=== PATIENT | male | born 1940 | race Caucasian/White ===

== ENCOUNTER 2016-07-11 07:37 | Day surgery (SDC) | payer MEDICARE ==
[~2016-07-11] VITALS: Ht 182.9 cm; Wt 89.5 kg
[~2016-07-11 07:37] MED LIST: ASCORBIC ACID500 MG PO; ASPIRIN81 MG PO; IVIG; JANUMET XR 50-1 EACH PO; METAMUCIL PACKE1 PKT PO; MULTIPLE VITAMI1 TA1 PO; OMEGA-3100 MG PO; PROBIOTIC1 EAC1 PO; PROTONIX40 MG PO; SYNTHROID100 MCG PO; TESTOSTERON200 MG/ML IM; TOPROL XL25 MG PO; VITAMIN C500 MG; VITAMIN D31000 UNIT PO
[2016-07-11] MEDS ORDERED: METAMUCIL PO (08:53)
[2016-07-11] MEDS ORDERED: OMEGA Q PLUS (09:01)
[2016-07-11] MEDS ORDERED: BIOTIN PO (09:02)
[2016-07-11] MEDS ORDERED: [UNRECOGNIZED DRUG - OTHER] PO (09:04)
[2016-07-11] MEDS ORDERED: [UNRECOGNIZED DRUG - OTHER] (09:05)
[2016-07-11] MEDS ORDERED: [UNRECOGNIZED DRUG - OTHER] PO (09:06)
[2016-07-11] MEDS ORDERED: IMMUNE GLOBULIN IV (09:09)
[2016-07-11 09:44] VITALS: BP 165/90; Ht 182.9 cm; Wt 89.5 kg
[2016-07-11 10:06] LABS: BASOPHILS 0.8 % (0.0-2.0); EOSINOPHILS 2.1 % (0-7); HEMATOCRIT 38.7 % (42.0-54.0); HEMOGLOBIN 13.4 g/dL (13.5-17.5); IMMATURE GRANULOCYTES 0.2 % (0-5); LYMPHOCYTES 15.8 % (15-50); MCH 34.8 pg (26.0-34.0); MCHC 34.6 g/dL (31.0-37.0); MCV 100.5 fL (80.0-100.0); MEAN PLATELET VOLUME 10.3 fL (7.4-10.4); MONOCYTES 11.3 % (2-11); NEUTROPHILS 69.8 % (40-80); PLATELET COUNT 187 10x3/uL (130-400); RBC 3.85 10x6/uL (4.20-6.10); RDW 13.3 % (11.5-14.5); WBC 5.1 10x3/uL (4.8-10.8)
[2016-07-11 10:15] LABS: CALC OSMOLALITY 280 mosm/kg (275-300); CALCIUM 10.1 mg/dL (8.5-10.1); CARBON DIOXIDE 22.9 mmol/L (21.0-32.0); CHLORIDE - SERUM 103 mmol/L (98-107); POTASSIUM - SERUM 4.4 mmol/L (3.5-5.1); SODIUM 138 mmol/L (136-145); UREA NITROGEN 13 mg/dL (7-18); eGFR NON AFRICAN AMERICAN 78 mL/min (90-120)
[2016-07-11 10:19] LABS: GLUCOSE 181 mg/dL (74-106)
--- NOTE | 2016-07-11 13:55 | NUR ---
1345--PORT FLUSHED WITH 10CC NORMAL SALINE AND 5CC HEPARIN. PORT DC'D. PT UP TO DRESS AT THIS TIME. MALENA RN
--- NOTE | 2016-07-11 14:11 | NUR ---
1410--DISCHARGE INSTRUCTIONS GIVEN, PT VERBALIZES UNDERSTANDING. PT OFF UNIT VIA ALF. MALENA LAI
--- NOTE | 2016-07-22 10:18 | OP ---
PATIENT NAME: CARLENE RUIZ III MEDICAL RECORD: [id number] :42 LOCATION:D.OPS ADMISSION DATE: SURGEON: JEN PERALES MD DATE OF OPERATION: 07/11/2016 REFERRING PHYSICIAN: Chuy Jones MD. PREOPERATIVE DIAGNOSIS: Screening. OPERATION PERFORMED: Screening colonoscopy. SURGEON: Jen Perales MD. ANESTHESIA: TIVA per TRAY DELIVERY AIDE. PREOPERATIVE NOTE: Mr. Ruiz is a very nice gentleman who has not had colonoscopy now for a number of years, over 10, that is brought to the hospital at this time for a screening colonoscopy. He had had a standard MiraLax bowel prep. DESCRIPTION OF PROCEDURE: Under TIVA, with the patient in the lateral decubitus position, a digital rectal exam was done and this was normal. There was no sign of perianal inflammation or sepsis. No hemorrhoidal thrombosis, no blood. The prostate was mildly enlarged. The Olympus colonoscope was then inserted and advanced to the cecum. It proved difficult to reach the cecum due to a long and tortuous colon and looping of the scope and also the patient's prep was just barely acceptable and required fair amount of irrigation and suction. A thorough examination though was obtained and today I found no polyps or other mucosal lesions or any significant diverticulosis. No sign of bleeding, etc. The scope was retroflexed in the rectum and the upper anal canal examined from above and it also was normal. The scope was withdrawn and the patient awakened and in stable condition returned to the outpatient department. He will be allowed to resume his usual diet and activities and home medications and I have recommended that he have a repeat surveillance colonoscopy in between 5 and 10 years. Note that there is a past prior personal history of colon polyps many years ago, removed with colonoscopy. Also, there is a family history of some type of colon malignancy, though it may have been a metastatic melanoma according to the patient. TRANSINT:[id number] Voice Confirmation ID: [id number] DOCUMENT ID: [id number] JEN PERALES MD at 1018 CC: CHUY JONES MD [id number] DICTATION DATE: 07/19/16 1601 SURGICAL DENTAL ASSISTANT: 07/19/16 2353 [facility] 07/11/16 [place] [address]
== END 2016-07-11 14:10 | disposition home or self-care (01) ==
LOC: D.OPS 07:37
PROVIDERS: Surgery
DX: Z12.11 Encounter for screening for malignant neoplasm of colon (principal); Z86.010 Personal history of colon polyps; Z80.0 Family history of malignant neoplasm of digestive organs

== ENCOUNTER → 2016-11-28 09:54 | Outpatient (CLI) | payer MEDICARE ==
[2016-07-11 09:44] VITALS: BMI 26.7
[~2016-11-28 09:54] MED LIST changes: +BIOTIN PO; +IMMUNE GLOBULIN IV; +METAMUCIL PO; +OMEGA Q PLUS; +[UNRECOGNIZED DRUG - OTHER]; +[UNRECOGNIZED DRUG - OTHER] PO; +[UNRECOGNIZED DRUG - OTHER] PO
== END | disposition home or self-care (01) ==
LOC: D.CT 09:54
DX: M54.16 Radiculopathy, lumbar region (principal)

== ENCOUNTER → 2017-08-01 12:03 | Outpatient (CLI) | payer MEDICARE ==
[2017-08-01 13:40] VITALS: BMI 24.8
== END | disposition home or self-care (01) ==
LOC: D.FANS 07-05 09:00
DX: E11.9 Type 2 diabetes mellitus without complications (principal)

== ENCOUNTER → 2018-12-07 09:34 | Outpatient (CLI) | payer MEDICARE ==
[2017-08-01 13:40] VITALS: BMI 24.8
== END | disposition home or self-care (01) ==
LOC: D.US 09:34
PROVIDERS: ATTEND Family Medicine
DX: R10.9 Unspecified abdominal pain (principal)

== ENCOUNTER 2019-02-13 13:30 | Inpatient (IN) | payer MEDICARE ==
[~2019-02-13] VITALS: Ht 182.9 cm; Wt 85.1 kg
--- NOTE | ~2019-02-13 | HEMODYNAMI ---
PATIENT:CARLENE ALLEN III MEDICAL RECORD: [id number] : 44 LOCATION:[facility] D.2122 ADMISSION DATE: 02/13/19 Generatedon:02/18/201910:15 Patient name: CARLENE ALLEN Patient #: [id number] : 1940 Date of study: 02/18/2019 Page: Of Hemodynamic Procedure Report Patient Data Patient Demographics Procedure consent was obtained First Name: CARLENE Gender: Male Last Name: TIFFANY Suffix: JEFFREY Middle Initial: GREGORY : 1940 Patient #: [id number] Age: 78 year(s) Race: SSN: [id number] Additional ID: [id number] Contact details [address]: [address] [place] [address] State: [place] City: [place] Zip code: [address] Past Medical History Allergies Allergen Reaction Date Comments Reported Other allergy 02/18/2019 Statins Admission Admission Data Admission Date: 02/13/2019 Admission Time: 17:37 Arrival Date: 02/13/2019 Arrival Time: 7:37 Admit Source: Emergency Insurance Payor: Medicare department Room #: D.2122 Height (in.): 72.05 BSA: 2.07 (m2) Height (cm.): 183 BMI: 25.38 (kg/m2) Weight (lbs.): 187.39 Weight (kg.): 85 Lab Results Lab Result Date: 02/18/2019 Lab Result Time: 0:00 Biochemistry Name Units Result Min Max BUN mg/dl 30 --(----)-* 7 18 Creatinine mg/dl 1.2 --(---*)-- 0.6 1.3 Troponin l ng/ml 3.532 --(----)-* 0 0.06 CBC Name Units Result Min Max Hemoglobin g/dl 9.3 *-(----)-- 13.5 17.5 Procedure Procedure Types Cath Procedure Diagnostic Procedure [facility] w/Coronaries w/Grafts Sedation Charges Moderate Sedation up to 45 minutes PCI Procedure Coronary Atherectomy Atherectomy w/Stent Coronary Initial Procedure Description Procedure Date Procedure Date: 02/18/2019 Procedure Start Time: 8:33 Procedure End Time: 10:06 Procedure Staff Name Function Darrin Avina MD Performing Physician Ravinder Luther RT Monitor Lauren Avila RT Scrub Seth Calzada RN Nurse Jules De Leon MD Assisting physician Procedure Data Cath Procedure Fluoroscopy Diagnostic fluoroscopy Total fluoroscopy Time: time: 27.8 min 27.8 min Diagnostic fluoroscopy Total fluoroscopy dose: dose: 4436 mGy 4436 mGy Contrast Material Contrast Material Type Amount (ml) Isovue 300 320 Entry Location Entry Primary Successful Side Size Upsize Upsize Entry Closure Succes sful Closure Location (Fr) 1 (Fr) 2 (Fr) Remarks Device Remarks Femoral Left 5 Fr 6 Fr 7 Fr Exoseal artery Short Short Estimated blood loss: 10 ml Diagnostic catheters Device Type Used For End Catheter Placement MULTIPACK JL 4.0 5Fr Procedure catheter MULTIPACK 3DRC 5Fr Procedure catheter DIAGNOSTIC AR MOD 5Fr Procedure Catheter ([id number]) DIAGNOSTIC AR2 MOD 5 Fr Procedure catheter ([id number]) MULTIPACK Pigtail 5 Fr Procedure catheter Procedure Complications No complications Procedure Medications Medication Administration Route Dosage Oxygen etCO2 Nasal cannula 2 l/min Heparin Flush Bag added to field 2 bags (1000units/500ml NS) 0.9% NaCl I.V. 100 ml/hr Lidocaine 2% added to field 20 Fentanyl I.V. 25 mcg Versed I.V. 0.5 mg Fentanyl I.V. 25 mcg Versed I.V. 0.5 mg Fentanyl I.V. 25 mcg Heparin Bolus I.V. 8500 units Nitroglycerin IC/IA I.C. 100 mcg Integrilin (Bolus I.V. 7.3 ml 2mg/ml) Integrilin (Bolus wasted 2.7 ml 2mg/ml) Versed I.V. 0.5 mg Fentanyl I.V. 25 mcg Heparin Bolus I.V. 4000 units Versed I.V. 0.5 mg Plavix P.O. 600 mg Hemodynamics Rest BSA: 2.07 (m2) HGB: 9.3 (g/dl) O2 Consumption: Estimated: 259.63 (ml/min) O2 Con sumption indexed: Estimated:125.43 (ml/min/m) Heart Rate: 98 (bpm) Snapshots Pre Cath Intra NCS Post Cath Vital Signs Time Heart Resp SPO2 etCO2 NIBP (mmHg) Rhythm Pain Sedation Rate (ipm) (%) (mmHg) Status Level (bpm) 8:22:11 99 30 91 21.8 116/86(104) NSR 0 (11) 10(A) , No pain 8:26:10 98 28 96 21.8 123/86(99) NSR 0 (11) 10(A) , No pain 8:30:16 100 22 89 11.2 107/78(88) NSR 0 (11) 9(A) , No pain 8:34:14 98 25 95 24 113/82(95) NSR 0 (11) 9(A) , No pain 8:38:11 99 28 95 22.5 116/86(100) NSR 0 (11) 9(A) , No pain 8:42:13 97 27 93 23.3 109/83(96) NSR 0 (11) 9(A) , No pain 8:46:13 100 26 94 19.5 106/81(89) NSR 0 (11) 9(A) , No pain 8:50:08 105 29 95 19.5 119/88(100) NSR 0 (11) 9(A) , No pain 8:54:12 100 20 81 13.5 106/79(90) NSR 0 (11) 9(A) , No pain 8:58:14 102 20 88 17.2 101/71(87) NSR 0 (11) 9(A) , No pain 9:02:13 103 21 89 9 100/73(85) NSR 0 (11) 9(A) , No pain 9:06:15 91 21 87 15 96/66(79) NSR 0 (11) 9(A) , No pain 9:10:12 106 22 87 15 99/74(85) NSR 0 (11) 9(A) , No pain 9:14:10 102 23 87 20.3 99/76(84) NSR 0 (11) 9(A) , No pain 9:18:05 106 22 87 19.5 99/80(88) NSR 0 (11) 9(A) , No pain 9:22:01 97 22 90 20.3 106/83(94) NSR 0 (11) 9(A) , No pain 9:25:58 105 26 90 18.8 111/85(96) NSR 0 (11) 9(A) , No pain 9:29:58 107 26 90 19.5 110/82(94) NSR 0 (11) 9(A) , No pain 9:33:58 106 24 92 19.5 107/79(91) NSR 0 (11) 9(A) , No pain 9:37:55 95 25 93 19.5 105/85(95) NSR 0 (11) 9(A) , No pain 9:41:55 104 23 92 20.3 103/79(89) NSR 0 (11) 9(A) , No pain 9:45:53 99 25 95 18.8 101/77(84) NSR 0 (11) 9(A) , No pain 9:49:50 100 23 92 18 103/79(90) NSR 0 (11) 9(A) , No pain 9:53:54 103 23 90 0 95/65(85) NSR 0 (11) 9(A) , No pain 9:57:50 105 24 91 18 100/76(92) NSR 0 (11) 9(A) , No pain 10:01:49 106 25 85 21 99/74(86) NSR 0 (11) 10(A) , No pain 10:05:47 106 25 88 12 106/77(88) NSR 0 (11) 10(A) , No pain Medications Time Medication Route Dose Verified Delivered Reason Notes Effectiveness by by 8:25:02 Oxygen etCO2 2 Darrin Seth Per physician Nasal l/min Fabrice Calzada RN cannula 8:25:10 Heparin Flush added 2 Darrin Seth used for Bag to bags Fabrice Calzada RN procedure (1000units/500ml field NS) 8:25:17 0.9% NaCl I.V. 100 Darrin Seth Per physician ml/hr Fabrice Calzada RN 8:25:26 Lidocaine 2% added 20ml Darrin Seth for local to vial Fabrice Calzada RN anesthetic field 8:28:03 Fentanyl I.V. 25 Darrin Seth for sedation mcg Fabrice Calzada RN 8:28:09 Versed I.V. 0.5 Darrin Seth for sedation mg Fabrice Calzada RN 8:48:55 Fentanyl I.V. 25 Darrin Seth for sedation mcg Fabrice Calzada RN 8:48:59 Versed I.V. 0.5 Darrin Seth for sedation mg Fabrice Calzada RN 8:59:59 Fentanyl I.V. 25 Darrin Seth for sedation mcg Fabrice Calzada RN 9:00:11 Heparin Bolus I.V. 8500 Darrin Seth for units Fabrice Calzada RN anticoagulation 9:30:56 Nitroglycerin I.C. 100 Darrin Darrin for IC/IA mcg Fabrice santos 9:36:23 Integrilin I.V. 7.3 Darrin Seth for (Bolus 2mg/ml) ml Fabrice Calzada RN antiplatelet therapy 9:36:32 Integrilin wasted 2.7 Darrin Seth for (Bolus 2mg/ml) ml Fabrice Calzada RN antiplatelet therapy 9:46:00 Versed I.V. 0.5 Darrin Seth for sedation mg Fabrice Calzada RN 9:46:14 Fentanyl I.V. 25 Darrin Seth for sedation mcg Fabrice Calzada RN 9:47:22 Heparin Bolus I.V. 4000 Darrin Seth for units Fabrice Calzada RN anticoagulation 9:55:49 Versed I.V. 0.5 Darrin Seth for sedation mg Fabrice Calzada RN 10:01:22 Plavix P.O. 600 Darrin Seth for mg Fabrice Calzada RN antiplatelet therapy Procedure Log Time Note 7:22:45 Diagnostic Cath Status : Elective 7:23:18 ACC Patient presents with Unstable Angina CCS Anginal Class 3--Marked limitation of physical activity, angina occurs with ordinary activity.. 7:23:22 Procedure Status Urgent Heart Cath (IP). 7:23:25 Seth Calzada RN sent for patient. Start room use. 7:23:26 Time tracking: Regular hours (M-F 7:00 - 5:00) 7:23:30 Plan of Care:Hemodynamics will remain stable., Cardiac rhythm will remain stable., Comfort level will be maintained., Respiratory function will remain adequate., Patient/ family verbilizes understanding of procedure., Procedure tolerated without complication., Recovers from procedure without complications.. 7:27:13 Informed consent obtained and on chart 7:27:55 Lab Result : Troponin l 3.532 ng/ml 7::55 Lab Result : Hemoglobin 9.3 g/dl 7::55 Lab Result : BUN 30 mg/dl 7::55 Lab Result : Creatinine 1.2 mg/dl 7:28:35 Admit Source: Emergency department 7:29:08 Arrival Date: 02/13/2019 7:37:00 AM 7:29:19 Insurance Payor : Medicare 7:29: Patient Weight : 187.39 lbs 7:29:31 Patient Height : 72.05 inches 8:21:08 Patient received from Med II to CCL 2 Alert and oriented. Tansferred to table in Supine position. 8:21:09 Warm blankets applied, and kris hugger turned on for patient comfort. 8:21:10 Correct patient and procedure confirmed by team. 8:21:10 ECG and BP/O2 sat monitors applied to patient. 8:21:11 Vital chart was started 8:21:12 Baseline sample Acquired. 8:21:17 Rhythm: sinus rhythm , paced 8:21:18 Full Disclosure recording started 8:21:32 H&P Date Dictated: 02/13/2019 Within 30 days and on chart.. 8:21:33 Pre-procedure instructions explained to patient. 8:21:33 Pre-op teaching completed and patient verbalized understanding. 8:21:35 Family in patients room. 8:21:36 Patient NPO since Midnight. 8:21:45 Patient allergic to Other allergyStatins 8:21:46 Is the patient allergic to Iodine/contrast media? No. 8:21:47 Is patient on blood thinner?No 8:21:49 Patient diabetic? Yes. 8:21:49 If diabetic: On Metformin? No 8:21:52 Previous problem with sedation/anesthesia? No ? 8:21:52 Snore? Yes 8:21:53 Sleep apnea? No 8:21:54 Deviated septum? No 8:21:55 Opens mouth fully? Yes 8:21:55 Sticks out tongue? Yes 8:22:01 Airway obstruction? No pneumonia 8:22:03 Dentures? No ? 8:22:19 Pre procedure: left dorsailis pedis pulse 1+ Palpable, but thready & weak; easily obliterated 8:22:32 Patient pain scale 0/10 ?. 8:22:37 IV patent on arrival in port with 0.9% NaCl at [facility]. 8:22:39 Lab results completed and on chart. 8:23:32 Left groin area was prepped with chlora-prep and draped in sterile fashion 8:24:44 Alarms reviewed by R. N. 8:24:45 Sharps counted by scrub and verified by R.N. 8:25:02 Oxygen 2 l/min etCO2 Nasal cannula was administered by Seth Calzada RN; Per physician; 8:25:09 Use device set Femoral Dx 8:25:10 Heparin Flush Bag (1000units/500ml NS) 2 bags added to field was administered by Seth Calzada RN; used for procedure; 8:25:10 ACIST Syringe (53992) opened to sterile field. 8:25:11 Bag Decanter (2002S) opened to sterile field. 8:25:11 Medline Cath Pack ([id number]) opened to sterile field. 8:25:12 ACIST Hand Control (91986) opened to sterile field. 8:25:12 ACIST Manifold (53432) opened to sterile field. 8:25:13 Tegaderm 4 x 4 (1626W) opened to sterile field. 8:25:14 SHEATH 5FR Paw Paw (DKO107) opened to sterile field. 8:25:16 DIAGNOSTIC Multipack 5Fr catheter set (RV0249) opened to sterile field. 8:25:17 0.9% NaCl 100 ml/hr I.V. was administered by Seth Calzada RN; Per physician; 8:25:25 Physician arrived 8:25:26 Lidocaine 2% 20ml vial added to field was administered by Seth Calzada RN; for local anesthetic; 8:25:26 --------ALL STOP TIME OUT------ 8:25:26 Final Timeout: patient, procedure, and site verified with staff and physician. All members of the team are in agreement. 8:25:27 Left groin site verified by team. 8:25:30 Fire Safety Assessment: A--An alcohol-based skin anteseptic being used preoperatively., C--Open oxygen or nitrous oxide is being used., D--An ESU, laser, or fiber-optic light is being used. 8:25:34 Physical assessment completed. ASA score P 3 - A patient with severe systemic disease as per Darrin Avina MD. 8:25:42 2) 60-89 Mildly reduced kidney function, and other findings (as for stage 1) point to kidney disease. 8:25:57 Maximum allowable contrast dose (3.7 X eGFR X 0.75)175 ml. 8:25:59 Sedation plan: IV Moderate Sedation Medication:Versed, Fentanyl 8:28:03 Fentanyl 25 mcg I.V. was administered by Seth Calzada RN; for sedation; 8:28:09 Versed 0.5 mg I.V. was administered by Seth Calzada RN; for sedation; 8:33:37 Procedure started. 8:33:42 Local anesthetic to left femerol artery with Lidocaine 2% by Darrin Avina MD.INITIAL ACCESS ONLY 8:33:49 A 5 Fr sheath was inserted into the Left Femoral artery 8:34:20 Zero performed for pressure channel P1 8:38:14 A MULTIPACK JL 4.0 5Fr catheter was advanced over the wire and used for Procedure. 8:39:29 LCA angiography performed. 8:40:45 Catheter exchanged over wire. 8:42:38 A MULTIPACK 3DRC 5Fr catheter was advanced over the wire and used for Procedure. 8:45:12 RCA angiography performed. 8:45:15 Catheter exchanged over wire. 8:45:19 A DIAGNOSTIC AR MOD 5Fr Catheter ([id number]) was advanced over the wire and used for Procedure. 8:45:55 RCA angiography performed. 8:47:31 Catheter exchanged over wire. 8:48:55 Fentanyl 25 mcg I.V. was administered by Seth Calzada RN; for sedation; 8:48:59 Versed 0.5 mg I.V. was administered by Seth Calzada RN; for sedation; 8:49:31 A DIAGNOSTIC AR2 MOD 5 Fr catheter ([id number]) was advanced over the wire and used for Procedure. 8:49:51 SVG to OM/ Diag angiography performed. 8:50:15 Catheter exchanged over wire. 8:52:09 A MULTIPACK Pigtail 5 Fr catheter was advanced over the wire and used for Procedure. 8:52:28 Aortic Root visualized 8:52:56 BMW 300cm Applegate 2 J wire ([id number]) opened to sterile field. 8:52:56 TUBING High Pressure Extension Tubing (Avina) (WE8282N) opened to sterile field. 8:52:57 INFLATOR Merit BasixCompak (AG6447) opened to sterile field. 8:53:00 SHEATH 6FR Paw Paw (BHU724) opened to sterile field. 8:54:34 Catheter removed. 8:54:40 ACCDominant side:Co-Dominant 8:55:02 Sheath upsized to a 6 Fr Short. 8:55:08 GUIDE 6FR AR 1.0 catheter ([id number]) opened to sterile field. 8:55:12 EMERALD Guide Wire (502-455) opened to sterile field. 8:57:11 6 Fr AR 1 guide catheter was inserted over the wire 8:58:23 Guide Catheter removed. pressure damping. 8:59:28 GUIDE 6FR AR 1.0 SH catheter ([id number]) opened to sterile field. 8:59:37 6 Fr AR 1 SH guide catheter was inserted over the wire 8:59:40 BMW wire advanced. 8:59:59 Fentanyl 25 mcg I.V. was administered by Seth Calzada RN; for sedation; 9:00:11 Heparin Bolus 8500 units I.V. was administered by Seth Calzada RN; for anticoagulation; 9:01:13 Wire advanced across lesion. 9:02:48 ACC Pre-intervention KARLA Flow is 3. 9:02:59 Pre PCI Site: [place] dRCA has 90% stenosis. 9:04:14 WHISPER 300cm guide wire ([id number]) opened to sterile field. 9:04:22 WHISPER wire advanced. 9:09:20 The Mozec Rx 2.5 x 14 balloon was advanced and then removed because of failure to cross lesion 9:10:48 Inflate balloon Inflation number: 1 A EUPHORA 1.5 x 12 balloon ([id number]) was prepped and advanced across the Dist RCA , then inflated to 12 AVERY for 0:10 (min:sec) . 9:11:33 Inflation number: 2 The EUPHORA 1.5 x 12 balloon ([id number]) was reinflated across the Dist RCA , to 12 AVERY for 0:10 (min:sec) . 9:11:34 Balloon removed over the wire. 9:12:41 ACT drawn and resulted at 285 seconds. (normal therapeutic range 180-240 seconds). 9:14:15 Inflate balloon Inflation number: 3 A Mozec Rx 2.0 x 15 balloon was prepped and advanced across the Dist RCA , then inflated to 12 AVERY for 0:10 (min:sec) . 9:14:50 Inflation number: 4 The Mozec Rx 2.0 x 15 balloon was reinflated across the Dist RCA , to 13 AVERY for 0:10 (min:sec) . 9:17:38 Balloon removed over the wire. 9:20:00 The DELBERT OTW 2.5 x 18 stent ([id number]) was advanced then removed because of failure to cross lesion 9:22:28 Inflate balloon Inflation number: 5 A Mozec Rx 2.5 x 14 balloon was prepped and advanced across the Dist RCA , then inflated to 13 AVERY for 0:10 (min:sec) . 9:22:39 Inflation number: 6 The Mozec Rx 2.5 x 14 balloon was reinflated across the Dist RCA , to 13 AVERY for 0:10 (min:sec) . 9:23:23 Balloon removed over the wire. 9:25:51 Wire removed. 9:27:32 The DELBERT OTW 2.5 x 18 stent ([id number]) was advanced then removed because of failure to cross lesion 9:30:56 Nitroglycerin IC/IA 100 mcg I.C. was administered by Darrin Avina MD; for vasodilation; 9:33:30 GUIDE 7FR AR 2.0 SH catheter ([id number]) opened to sterile field. 9:33:35 SHEATH 7FR Paw Paw (JBE666) opened to sterile field. 9:34:00 CHOICE PT Extra Support 182cm wire ([id number]) opened to sterile field. 9:36:23 Integrilin (Bolus 2mg/ml) 7.3 ml I.V. was administered by Seth Calzada RN; for antiplatelet therapy; 9:36:32 Integrilin (Bolus 2mg/ml) 2.7 ml wasted was administered by Seth Calzada RN; for antiplatelet therapy; 9:38:25 Wire removed. 9:38:26 Guide catheter removed. 9:38:39 Sheath upsized to a 7 Fr Short. 9:38:56 7 Fr AR 2 SH guide catheter was inserted over the wire 9:39:00 CHOICE PT ES wire advanced. 9:39:35 Wire advanced across lesion. 9:40:16 Inflate balloon Inflation number: 7 A EUPHORA 3.5 x 15 Balloon ([id number]) was prepped and advanced across the Dist RCA , then inflated to 15 AVERY for 0:10 (min:sec) . 9:40:43 Inflation number: 8 The EUPHORA 3.5 x 15 Balloon ([id number]) was reinflated across the Dist RCA , to 19 AVERY for 0:10 (min:sec) . 9:41:52 Balloon removed over the wire. 9:42:24 Place stent Inflation Number: 9 A DELBERT RX 3.5 x 22 stent ([id number]) was prepped and advanced across the Dist RCA . The stent was deployed at 23 AVERY for 0:10 (min:sec) . 9:43:01 Inflation number: 10 The stent balloon was then re-inflated across the Dist RCA to 23 AVERY for 0:10 (min:sec) . 9:43:19 Stent catheter was removed intact over wire. 9:44:43 Inflate balloon Inflation number: 11 A EUPHORA 2.5 x 15 Balloon ([id number]) was prepped and advanced across the Dist RCA , then inflated to 21 AVERY for 0:10 (min:sec) . 9:45:12 Inflation number: 12 The EUPHORA 2.5 x 15 Balloon ([id number]) was reinflated across the Dist RCA , to 21 AVERY for 0:10 (min:sec) . 9:45:42 Inflation number: 13 The EUPHORA 2.5 x 15 Balloon ([id number]) was reinflated across the Dist RCA , to 23 AVERY for 0:10 (min:sec) . 9:46:00 Versed 0.5 mg I.V. was administered by Seth Calzada RN; for sedation; 9:46:14 Fentanyl 25 mcg I.V. was administered by Seth Calzada RN; for sedation; 9:47:22 Heparin Bolus 4000 units I.V. was administered by Seth Calzada RN; for anticoagulation; 9:48:59 Balloon removed over the wire. 9:49:05 LASER ELCA 0.9 Rx atherectomy catheter (008748) opened to sterile field. 9:49:27 Laser pass to dRCA with Fluence of 80 and Rate of 80. 9:52:14 Laser catheter removed. 9:53:18 Laser total pulses delivered: 5600 9:53:22 Laser total treatment time: 1 minutes 10 seconds 9:55:34 CHOICE PT Extra Support J 300cm guide wire ([id number]) opened to sterile field. 9:55:45 CHOICE PT ES LONG wire advanced. 9:55:49 Versed 0.5 mg I.V. was administered by Seth Calzada RN; for sedation; 9:56:47 The EUPHORA 3.0 x 15 Balloon ([id number]) was advanced and then removed because of failure to cross lesion 9:56:53 Wire removed. 9:56:53 Wire removed. 9:56:54 Guide catheter removed. 9:57:01 EXOSEAL 7Fr (EX700) opened to sterile field. 9:57:08 Sheath removed intact; hemostasis achieved with Exoseal to the Left Femoral artery. 9:57:10 Procedure ended.(Physican Out) 10:01:22 Plavix 600 mg P.O. was administered by Seth Calzada RN; for antiplatelet therapy; 10::22 Fluoroscopy time 27.80 minutes. 10:01:26 Flurop Dose total: 4436 10:01:26 Fluoroscopy dose: 4436 mGy 10:01:41 Dose Area Product 970022 mGy/cm. 10:01:46 Contrast amount:Isovue 300 320ml. 10:01:50 Maximum allowable dose exceeded? No. 10:01:51 Sharps counted by scrub and verified by R.N. 10:02:21 Insertion/operative site no bleeding no hematoma. 10:02:24 Post-op/insertion site Left Femoral artery dressed using a 4 x 4 and Tegaderm. 10:02:32 Post left femerol artery:stable, soft, clean and dry 10:02:33 Post Procedure Pulses reassessed and unchanged 10:02:35 Post-procedure physical assessment completed. ASA score P 3 - A patient with severe systemic disease as per Darrin Avina MD. 10:02:37 Post procedure rhythm: unchanged. 10:02:42 Estimated blood loss: 10 ml 10::44 Post procedure instruction explained to patient.Patient verbalizes understanding. 10::44 Patient needs reinforcement of post procedure teaching. 10:03:42 Procedure type changed to Cath procedure, Diagnostic procedure, LHC, LHC w/Coronaries w/Grafts, Sedation Charges, Moderate Sedation up to 45 minutes, PCI procedure, Coronary Atherectomy, Atherectomy w/Stent Coronary Initial 10:06:19 Procedure and supply charges have been captured, reviewed, submitted and are correct. 10:06:21 Procedure Complication : No complications 10:06:23 Vital chart was stopped 10:06:24 See physician's report for complete and final results. 10:: Report given to PCU. 10::29 Patient transfered to PCU with Stretcher. 10::31 Procedure ended. 10:06:31 Full Disclosure recording stopped 10:06:38 ACC-PCI Only Patient was given prescriptions, or instructed by Darrin Avina MD to start/continue the following medications upon discharge: Aspirin, Plavix 10:06:39 End room use (Document Last) 10:10:46 Lauren Avila RT(R) was relieved by Ravinder Luther RT(R) as monitoring person Intervention Summary Intervention Notes Time ActionType Lesion and Equipment Used Action# Pressure Duration Attributes 9:09:20 Discard Mozec Rx 2.5 x Balloon 14 balloon 9:10:48 Inflate Dist RCA EUPHORA 1.5 x 1 12 00:10 balloon 12 balloon ([id number]) 9:11:33 Reinflate Dist RCA EUPHORA 1.5 x 2 12 00:10 balloon 12 balloon ([id number]) 9:14:15 Inflate Dist RCA Mozec Rx 2.0 x 3 12 00:10 balloon 15 balloon 9:14:50 Reinflate Dist RCA Mozec Rx 2.0 x 4 13 00:10 balloon 15 balloon 9:20:00 Discard DELBERT OTW 2.5 x Stent 18 stent ([id number]) 9:22:28 Inflate Dist RCA Mozec Rx 2.5 x 5 13 00:10 balloon 14 balloon 9:22:39 Reinflate Dist RCA Mozec Rx 2.5 x 6 13 00:10 balloon 14 balloon 9:27:32 Discard DELBERT OTW 2.5 x Stent 18 stent ([id number]) 9:40:16 Inflate Dist RCA EUPHORA 3.5 x 7 15 00:10 balloon 15 Balloon ([id number]) 9:40:43 Reinflate Dist RCA EUPHORA 3.5 x 8 19 00:10 balloon 15 Balloon ([id number]) 9:42:24 Place stent Dist RCA DELBERT RX 3.5 x 9 23 00:10 22 stent ([id number]) 9:43:01 Reinflate Dist RCA DELBERT RX 3.5 x 10 23 00:10 stent 22 stent balloon ([id number]) 9:44:43 Inflate Dist RCA EUPHORA 2.5 x 11 21 00:10 balloon 15 Balloon ([id number]) 9:45:12 Reinflate Dist RCA EUPHORA 2.5 x 12 21 00:10 balloon 15 Balloon ([id number]) 9:45:42 Reinflate Dist RCA EUPHORA 2.5 x 13 23 00:10 balloon 15 Balloon ([id number]) 9:56:47 Discard EUPHORA 3.0 x Balloon 15 Balloon ([id number]) Device Usage Item Name Manufacture Quantity Catalog Number Hospital Part Current M inimal Lot# / Charge Number Stock Stock Serial# Code ACIST Syringe Acist 1 71850 780498 028215 970146 2 0 (75039) Medical Systems Inc Bag Decanter Microtek 1 2001S 261347 12358 866411 5 () Medical Inc. Medline Cath Medline 1 [id number] 187721 97161 560677 5 Pack ([id number]) ACIST Hand Acist 1 55005 555136 043876 850699 5 Control Medical (50328) Systems Inc ACIST Manifold Acist 1 46420 232899 959513 751693 5 (98968) Medical Systems Inc Tegaderm 4 x 4 3M 1 1626W 801417 901095 376524 5 (1626W) SHEATH 5FR Terumo 1 YYC134 407102 170815 641998 5 Paw Paw (TOY186) DIAGNOSTIC Cardinal 1 LU2864 865403 43873 638087 3 0 Multipack 5Fr Health catheter set (JE1695) MULTIPACK JL Cardinal 1 476110 5 4.0 5Fr Health catheter MULTIPACK 3DRC Cardinal 1 973522 5 5Fr catheter Health DIAGNOSTIC AR Cardinal 1 384788V 490784 273705 894186 1 5 MOD 5Fr Health Catheter (940441C) DIAGNOSTIC AR2 Cardinal 1 476386C 912221 480811 237726 2 0 MOD 5 Fr Health catheter (000445Y) MULTIPACK Cardinal 1 654515 5 Pigtail 5 Fr Health catheter BMW 300cm Ojeda 1 [id number] 036590 302232 622895 5 Applegate 2 J Vascular wire (6220126C) TUBING High Merit 1 GE1153B 679701 86248 209600 1 0 Pressure Medical Extension Tubing (Avina) (VV5241E) INFLATOR Merit Merit 1 OC6236 928524 689774 107715 1 5 BasixAppwoRx Medical (LN7050) SHEATH 6FR Terumo 1 DCN173 767596 345991 690356 4 0 Paw Paw (UQQ005) GUIDE 6FR AR Medtronic 1 [id number] 621046 73151 759697 1 1.0 catheter (IJ3EA18) EMERALD Guide Cardinal 1 502-455 411026 502923 663644 5 Wire (502-455) Health GUIDE 6FR AR Medtronic 1 [id number] 973426 43647 893719 1 1.0 SH catheter ([id number]) WHISPER 300cm Ojeda 1 [id number] 648495 321397 692180 5 guide wire Vascular ([id number]) Mozec Rx 2.5 x Cardinal 1 [id number] 901101 07643 441819 5 UMOE02 14 balloon Health EUPHORA 1.5 x Medtronic 1 [id number] 815131 882019 908930 5 [id number] 12 balloon ([id number]) Mozec Rx 2.0 x Cardinal 1 [id number] 618929 54492 403224 5 UMOE33 15 balloon Health DELBERT OTW 2.5 x Medtronic 1 [id number] 284362 25381 774472 5 [id number] 18 stent ([id number]) GUIDE 7FR AR Medtronic 1 [id number] 283422 232267 857372 0 2.0 SH catheter ([id number]) SHEATH 7FR Terumo 1 YEI553 101015 664460 219757 5 Paw Paw (PVK525) CHOICE PT [place] 1 [id number] 519321 315708 [id number] 5 Extra Support Scientific 182cm wire ([id number]) EUPHORA 3.5 x Medtronic 1 [id number] 5 [id number] 15 Balloon ([id number]) DELBERT RX 3.5 x Medtronic 1 [id number] [id number] 5 [id number] 22 stent ([id number]) EUPHORA 2.5 x Medtronic 1 [id number] 289414 346510 5 [id number] 15 Balloon ([id number]) LASER ELCA 0.9 Celso 1 110-004 [id number] 069575 [id number] 5 Rx atherectomy Healthcare catheter ([id number]) ([id number]) CHOICE PT [place] 1 [id number] 829730 911101 5 Extra Support Scientific J 300cm guide wire ([id number]) EUPHORA 3.0 x Medtronic 1 [id number] 588377 765367 334658 5 [id number] 15 Balloon ([id number]) EXOSEAL 7Fr Cardinal 1 EX700 437380 707010 395800 5 (EX700) Health Signature Audit [place] Stage Time Signature Unsigned Intra-Procedure 02/18/2019 Seth Calzada RN 10:08:19 AM Intra-Procedure 02/18/2019 Darrin Avina MD; 10:12:02 AM Jules De Leon MD; Ravinder Luther RT(R) [facility] [address] [place] [address]
[2019-02-13] MEDS ORDERED: GLUCOPHAGE1000 MG PO (13:53)
[2019-02-13] MEDS ORDERED: OMEGA-3100 MG (13:54)
[2019-02-13] MEDS ORDERED: TOPROL XL100 MG PO (13:54)
[2019-02-13] MEDS ORDERED: AZASAN100 MG PO (13:54)
[2019-02-13 15:30] LABS: HEMATOCRIT 23.9 % (42.0-54.0); HEMOGLOBIN 8.2 g/dL (13.5-17.5); MCH 35.7 pg (26.0-34.0); MCHC 34.3 g/dL (31.0-37.0); MCV 103.9 fL (80.0-100.0); MEAN PLATELET VOLUME 9.4 fL (7.4-10.4); PLATELET COUNT 179 10x3/uL (130-400); RDW 14.8 % (11.5-14.5)
[2019-02-13 15:34] LABS: WBC 1.9 10x3/uL (4.8-10.8)
--- NOTE | 2019-02-13 15:37 | NUR ---
RCVD TC FROM LAB: CRITICAL WBC= 1.9 DR BARLOW NOTIFIED
[2019-02-13 15:40] LABS: ALBUMIN 3.5 g/dL (3.4-5.0); ANION GAP 17.1 mmol/L (8-16); BILIRUBIN - TOTAL 1.25 mg/dL (0.2-1.3); CALCIUM 8.9 mg/dL (8.5-10.1); CARBON DIOXIDE 26.2 mmol/L (21.0-32.0); CREATININE - SERUM 1.1 mg/dL (0.6-1.3); POTASSIUM - SERUM 4.3 mmol/L (3.5-5.1); PROTEIN - SERUM 7.3 g/dL (6.4-8.2)
[2019-02-13 16:02] VITALS: BP 113/80
[2019-02-13 16:24] LABS: EOSINOPHILS 8 % (0-7); LYMPHOCYTES 23 % (15-50); NEUTROPHILS 70 % (40-80); PLATELET ESTIMATE NORMAL
[2019-02-13 16:31] LABS: KETONE - SERUM NEGATIVE (NEGATIVE); MAGNESIUM - SERUM 1.2 mg/dL (1.8-2.4); THYROID STIMULATING HORMONE 1.86 uIU/mL (0.36-3.74)
[2019-02-13 16:36] LABS: TROPONIN-I 0.183 ng/mL (0.000-0.060)
[2019-02-13 16:45] LABS: APPEARANCE CLEAR (CLEAR); BILIRUBIN NEGATIVE (NEGATIVE); COLOR YELLOW (YELLOW); GLUCOSE NEGATIVE (NEGATIVE); KETONE MODERATE mg/dL (NEGATIVE); NITRITE NEGATIVE (NEGATIVE); PROTEIN 1+ mg/dL (NEGATIVE); UROBILINOGEN NORMAL (NORMAL)
--- NOTE | 2019-02-13 16:45 | NUR ---
1 SET OF BC DRAWN FROM IMPLANTABLE PORT AND 1 SET FROM PERIPHERAL SITE
[2019-02-13 17:02] LABS: APTT 34.9 SECONDS (22.8-39.4); INR 1.13 (0.85-1.17)
--- NOTE | 2019-02-13 17:50 | NUR ---
REPORT CALLED TO JOELLE PATRICK BY SBAR FORMAT
--- NOTE | 2019-02-13 18:03 | NUR ---
TRANSPORTED TO ROOM #2238 CONDITION STABLE. NS AND LEVAQUIN INFUSING UPON TRANSPORT
[2019-02-13 18:05] VITALS: BP 124/68
--- NOTE | 2019-02-13 18:45 | NUR ---
LEVAQUIN INFUSION COMPLETE
--- NOTE | 2019-02-13 19:30 | NUR ---
RESTING IN BED, DENIES PAIN OR NEEDS AT THIS TIME, ASSESSMENT DONE, CALL LIGHT IN REACH
[2019-02-14] VITALS (12 sets, daily range): BP systolic 94–132; BP diastolic 65–88; Ht 182.9 cm; Wt 85.1 kg
[2019-02-14 00:24] LABS: CKMB 2.1 U/L (0.0-3.6); CREATINE KINASE 44 UL (21-232)
[2019-02-14 00:26] LABS: TROPONIN-I 0.482 ng/mL (0.000-0.060)
[2019-02-14 06:37] LABS: BASOPHILS 0 % (0-2); EOSINOPHILS 5.4 % (0-7); HEMATOCRIT 31.7 % (42.0-54.0); HEMOGLOBIN 11.1 g/dL (13.5-17.5); IMMATURE GRANULOCYTES 0.7 % (0-5); LYMPHOCYTES 18.2 % (15-50); MCH 34.8 pg (26.0-34.0); MCV 99.4 fL (80.0-100.0); MEAN PLATELET VOLUME 9.9 fL (7.4-10.4); MONOCYTES 5.4 % (2-11); NEUTROPHILS 70.3 % (40-80); PLATELET COUNT 159 10x3/uL (130-400); RBC 3.19 10x6/uL (4.20-6.10)
[2019-02-14 06:39] LABS: WBC 1.5 10x3/uL (4.8-10.8)
[2019-02-14 07:01] LABS: CALCIUM 8.8 mg/dL (8.5-10.1); CHLORIDE - SERUM 100 mmol/L (98-107); CKMB 11.9 U/L (0.0-3.6); CREATINE KINASE 146 UL (21-232); CREATININE - SERUM 1.1 mg/dL (0.6-1.3); MAGNESIUM - SERUM 1.2 mg/dL (1.8-2.4); PHOSPHOROUS 3.3 mg/dL (2.5-4.9); SODIUM 138 mmol/L (136-145); UREA NITROGEN 24 mg/dL (7-18); eGFR NON AFRICAN AMERICAN 69 mL/min (90-120)
[2019-02-14 07:06] LABS: CALC OSMOLALITY 286 mosm/kg (275-300); GLUCOSE 224 mg/dL (74-106); TROPONIN-I 6.492 ng/mL (0.000-0.060)
--- NOTE | 2019-02-14 07:27 | NUR ---
I have reviewed this patient and I concur with the Shift Assessment completed by the Licensed Practical Nurse today this shift.
--- NOTE | 2019-02-14 08:20 | NUR ---
AWAKE AND ALERT. ORIENTED X3. NO C/O PAIN AT THIS TIME. LUNGS ARE CLEAR BILATERALLY, NO COUGH NOTED. PATIENT REPORTS OCCASSIONAL DRY COUGH. SKIN IS INTACT WTIHOUT REDNESS. RIGHT PORT PATENT WITHOUT REDNESS AT INSERTION SITE. DENIES NEEDS. BREAKFAST SERVED IN ROOMM. PARTIAL BLOOD DRAW FROM PORT USING ASEPTIC TECHNIQUE.
--- NOTE | 2019-02-14 10:35 | NUR ---
AT [facility]. DENIES NEEDS. PLACED IN REVERSE ISOLATION FOR LOW WBC. PATIENT AWARE OF SAME.
--- NOTE | 2019-02-14 12:15 | NUR ---
C/O SOB. RT HERE AND ASSESSED PATIENT. O2 UP TO 5L SATS AT 93%. WILL MONITOR.
[2019-02-14 12:22] LABS: CKMB 9.3 U/L (0.0-3.6); CREATINE KINASE 129 UL (21-232)
[2019-02-14 12:23] LABS: TROPONIN-I 5.126 ng/mL (0.000-0.060)
--- NOTE | 2019-02-14 12:45 | NUR ---
GIVEN LASIX PER ORDERS. WILL MONITOR. 16F BARR PLACES USING STERILE TECHNIQUE. ENTIRE CONTENTS OF KIT UTILIZED EXCEPT SPECIMEN CUP. PATIENT TOLERATED WITHOUT C/O.
--- NOTE | 2019-02-14 13:15 | NUR ---
ORDERS RECEIVED TO TRANSFER TO ICU.
--- NOTE | 2019-02-14 13:43 | NUR ---
PT RECIEVED FROM FLOOR VSS RESPIRATORY AT BEDSIDE. ABG REVIEWED. NO NEW ORDERS AT THIS TIME.
--- NOTE | 2019-02-14 13:45 | NUR ---
TRANSFERRED TO 2304 VIA BED WITH ALONG. REPORT GIVEN TO OPERATIONS WELDER.
--- NOTE | 2019-02-14 14:40 | NUR ---
PT BACK FROM CTA AWAITING RESULTS.
--- NOTE | 2019-02-14 15:09 | NUR ---
REASSESSMENT COMPLETE PER FLOW SHEET. VSS. NO NEW CHANGES WILL CONTINUE TO MONITOR
--- NOTE | 2019-02-14 19:30 | NUR ---
PT A/OX4, O2 @ 5L VIA N/C, RIGHT INFUSAPORT INTACT AND CORTNEY SULLIVAN PATENT TO BSD, NO C/O @ THIS TIME
--- NOTE | 2019-02-14 21:00 | NUR ---
PT AWAKE WITH NO C/O, VITALS STABLE, SYSTOLIC B/P REMAINING IN 90'S, METOPROLOL HELD
--- NOTE | 2019-02-14 23:15 | NUR ---
PT RESTING QUIETLY WITHOUT DISTRESS
[2019-02-15] VITALS (24 sets, daily range): BP systolic 87–115; BP diastolic 56–78
--- NOTE | 2019-02-15 01:30 | NUR ---
RESTING QUIETLY, VITALS STABLE
--- NOTE | 2019-02-15 03:30 | NUR ---
PT AWAKE, HOB ELEVATED 45 DEGREES, NO C/O
[2019-02-15 04:40] LABS: BASOPHILS 0 % (0-2); EOSINOPHILS 5.4 % (0-7); HEMATOCRIT 28.3 % (42.0-54.0); HEMOGLOBIN 9.8 g/dL (13.5-17.5); IMMATURE GRANULOCYTES 1.1 % (0-5); LYMPHOCYTES 16.2 % (15-50); MCH 34.8 pg (26.0-34.0); MCHC 34.6 g/dL (31.0-37.0); MCV 100.4 fL (80.0-100.0); MEAN PLATELET VOLUME 10.1 fL (7.4-10.4); MONOCYTES 4.3 % (2-11); PLATELET COUNT 157 10x3/uL (130-400); RBC 2.82 10x6/uL (4.20-6.10); RDW 17.1 % (11.5-14.5)
[2019-02-15 04:51] LABS: WBC 2.8 10x3/uL (4.8-10.8)
[2019-02-15 05:26] LABS: ALBUMIN 2.8 g/dL (3.4-5.0); ANION GAP 14.7 mmol/L (8-16); BILIRUBIN - TOTAL 1.57 mg/dL (0.2-1.3); CALCIUM 8.7 mg/dL (8.5-10.1); CARBON DIOXIDE 26.6 mmol/L (21.0-32.0); CREATININE - SERUM 1.2 mg/dL (0.6-1.3); MAGNESIUM - SERUM 1.3 mg/dL (1.8-2.4); PHOSPHOROUS 2.7 mg/dL (2.5-4.9); POTASSIUM - SERUM 4.3 mmol/L (3.5-5.1); PROTEIN - SERUM 6.6 g/dL (6.4-8.2)
[2019-02-15 05:30] LABS: TROPONIN-I 3.532 ng/mL (0.000-0.060)
--- NOTE | 2019-02-15 05:56 | NUR ---
PT WATCHING TV WITH NO C/O, TAKES PO MEDS WITHOUT DIFFICULTY
--- NOTE | 2019-02-15 07:45 | NUR ---
PT AWAKE AND ORIENTED. VSS. DENIES CP AT PRESENT. ALARMS SET. CALL LIGHT WITH IN REACH.
--- NOTE | 2019-02-15 07:57 | NUR ---
DR JENSEN HERE.
--- NOTE | 2019-02-15 09:23 | NUR ---
Nutrition follow-up: Pts diet advanced to consistent CHO Labs reviewed WT: 187# Will provide food choices and honor food preferences within diet restrictions. RDN following.
--- NOTE | 2019-02-15 13:25 | NUR ---
MAG REPLACEMENT PER ELECTROLYTE PROTOCOL UTILIZED. REPORTED TO GARO WITH CARDIOLOGY AND DR VALDEZ RE: HOLDING METOPROLOL DUE TO HYPOTENTION.
--- NOTE | 2019-02-15 17:25 | MORECARE ---
CASE MANAGEMENT DISCHARGE SUMMARY PATIENT: CARLENE ALLEN III UNIT: [id number] ADM DATE: 02/13/19 AGE: 78 : 42 SEX: M ROOM/BED: D.2304 AUTHOR: AYDEN GUPTA PHYSICIAN: REFERRING PHYSICIAN: ANNA MARIE VALDEZ MD DATE OF SERVICE: 02/15/19 Discharge Plan Patient Name: CARLENE ALLEN [facility] [facility] 1940 Planned Disposition: Home Anticipated Discharge Date: Discharge Date: Expected LOS: Initial Reviewer: [email or web address] Initial Review Date: 02/15/2019 Generated: 02/15/19 6:25 pm Patient Name: CARLENE ALLEN Page [phone] at 1729 All edits/amendments must be made on the electronic document DICTATION DATE: 02/15/191724 DISTRICT HOME ECONOMICS AGENT: CAMRON 02/15/191724 RPT#: [id number] DC DATE: STATUS: ADM IN [facility] [address] [place] [address] END OF REPORT
--- NOTE | 2019-02-15 17:34 | MORECARE ---
CASE MANAGEMENT DISCHARGE SUMMARY PATIENT: CARLENE ALLEN III UNIT: [id number] ADM DATE: 02/13/19 AGE: 78 : 42 SEX: M ROOM/BED: D.2304 AUTHOR: ALONSO,DOC PHYSICIAN: REFERRING PHYSICIAN: ANNA MARIE VALDEZ MD DATE OF SERVICE: 02/15/19 Discharge Plan Patient Name: CARLENE ALLEN Facility: [facility]:[place] : 1940 Planned Disposition: Home Anticipated Discharge Date: Discharge Date: Expected LOS: Initial Reviewer: [email or web address] Initial Review Date: 02/15/2019 Generated: 02/15/19 6:33 pm Comments DCP- Discharge Planning Updated by [email or web address]: Jodee Hernandez on 02/15/19 4:[address] Patient Name: CARLENE ALLEN Admission Status: ER Accout number: [id number] Admission Date: 02-13-2019 : 1940 Admission Diagnosis:PNEUMONIA, UNSPECIFIED ORGANISM Attending: JENNIFER VALDEZ Current LOS: 2 Anticipated DC Date: Planned Disposition: Home Primary Insurance: [facility] MEDICARE SOLUTIONS Discharge Planning Comments: CM met with patient at bedside after explaining CM role and obtaining verbal consent. Patient lives at home with his Mariama and plans to return there upon discharge. Patient feels this would be a safe discharge. CM discussed availability / needs of home health and medical equipment. Patient denies any discharge needs at this time. Patient states he will have his drive him home upon discharge. CM will continue to follow and assist as needed with discharge planning / needs. Yeast Distiller: Jodee Hernandez DCPIA - Discharge Planning Initial Assessment Updated by [email or web address]: Jodee Hernandez on 02/15/19 5:26 pm * Is the patient Alert and Oriented? Yes * How many steps to enter\exit or inside your home? * PCP PULLIG * Pharmacy [facility] * Preadmission Environment Home with Family * ADLs Independent * Other Equipment GLUCOMETER, B/P CUFF, WALKER, CANE, ELECTRIC SCOTTER * List name and contact numbers for known caregivers / representatives who currently or will assist patient after discharge: MRAIAMA ALLEN - SPOUSE- [phone] * Verbal permission to speak to the caregivers and representatives has been obtained from the patient. Yes * Community resources currently utilized None * Additional services required to return to the preadmission environment? No * Can the patient safely return to the preadmission environment? Yes * Has this patient been hospitalized within the prior 30 days at any hospital? No Last DP export: 02/15/19 4:25 p Patient Name: CARLENE ALLEN Page 08893 at 1734 All edits/amendments must be made on the electronic document DICTATION DATE: 02/15/191732 JUNK REMOVAL SPECIALIST: CAMRON 02/15/191732 RPT#: [id number] DC DATE: STATUS: ADM IN [facility] [address] [place] [address] END OF REPORT
--- NOTE | 2019-02-15 19:00 | NUR ---
SHIFT ASSESSMENT FOR 02-15-19 DOCUMENTED UNDER WRONG DATE IN ERROR (02-14-19) . REPORT RECEIVED. RECEIVED PATIENT UP IN BED AWAKE ALERT AND ORIENTED X 4. SPEECH CLEAR. MONITORS CONNECTED TO PATIENT WITH ALARMS SET. VSS. ASSESSMENT COMPLETED PER FLOW SHEET WITH NO ACUTE DISTRESS OBSERVED.
--- NOTE | 2019-02-15 21:00 | NUR ---
AWAKE AND ALERT. VSS
--- NOTE | 2019-02-15 23:00 | NUR ---
AWAKE AND ALERT. VSS. CALL LIGHT IN REACH
[2019-02-16] VITALS (17 sets, daily range): BP systolic 86–125; BP diastolic 51–85
--- NOTE | 2019-02-16 01:00 | NUR ---
RESTING WITH EYES CLOSED, EASILY ROUSED AND ALERT. VSS
--- NOTE | 2019-02-16 03:00 | NUR ---
REASSESSMENT COMPLETED PER FLOW SHEET WITH NO CHANGES OR ACUTE DISTRESS OBSERVED. VSS. CALL LIGHT IN REACH
[2019-02-16 03:01] LABS: BASOPHILS 0.4 % (0-2); EOSINOPHILS 7.1 % (0-7); HEMATOCRIT 27.5 % (42.0-54.0); HEMOGLOBIN 9.3 g/dL (13.5-17.5); IMMATURE GRANULOCYTES 1.9 % (0-5); LYMPHOCYTES 15.8 % (15-50); MCH 34.8 pg (26.0-34.0); MCHC 33.8 g/dL (31.0-37.0); MEAN PLATELET VOLUME 9.5 fL (7.4-10.4); MONOCYTES 5.6 % (2-11); NEUTROPHILS 69.2 % (40-80); PLATELET COUNT 143 10x3/uL (130-400); RBC 2.67 10x6/uL (4.20-6.10); RDW 16.7 % (11.5-14.5); WBC 2.7 10x3/uL (4.8-10.8)
[2019-02-16 03:14] LABS: ANION GAP 12.3 mmol/L (8-16); CALCIUM 8.5 mg/dL (8.5-10.1); CREATININE - SERUM 1.3 mg/dL (0.6-1.3); MAGNESIUM - SERUM 1.2 mg/dL (1.8-2.4); PHOSPHOROUS 2.6 mg/dL (2.5-4.9); POTASSIUM - SERUM 4.3 mmol/L (3.5-5.1)
--- NOTE | 2019-02-16 05:00 | NUR ---
AWAKE AND ALERT. VSS. CALL LIGHT IN REACH
--- NOTE | 2019-02-16 07:30 | NUR ---
PT AWAKE AND ORIENTED. BREAKFAST TRAY SERVED AND PT IS EATING WITH OUT PROBLEMS.
--- NOTE | 2019-02-16 09:59 | NUR ---
DR GARCIA HERE. DR JENSEN PAGED AND REPORTED THAT I HELD METOPROLOL AND I REPORTED THAT PT HAD CP RELEIVED BY MS LAST PM. DR JENSEN CONFERS WITH OK TO TRANSFER TO THE FLOOR.
--- NOTE | 2019-02-16 13:55 | NUR ---
RECEIVED PT TO ROOM 2122 VIA WHEELCHAIR, X2 ASSIST TO CHAIR, PT DENIES ANY NEEDS AT THIS TIME. CALL LIGHT IN REACH, NAD NOTED, WILL CONTIUE PLAN OF CARE.
--- NOTE | 2019-02-16 16:23 | NUR ---
BLOOD SUGAR OF 220, 4UNITS OF INSULIN GIVEN PER S.S. PT IN BED, DENIES ANY NEEDS AT THIS TIME. CALL LLIGHT IN REACH, NAD NOTED.
--- NOTE | 2019-02-16 18:18 | NUR ---
GAVE 2MG OF MORPHINE FOR PAIN LEVEL OF 5/10, ALSO HUNG MAG RIDER FOR LOW MAG OF 1.3. EMPTIED 650CC OF ALYCIA URINE OUT OF BARR CATHETER. PT DENIES ANY OTHER NEEDS AT THIS TIME. CALL LIGHT IN REACH, NAD NOTED.
--- NOTE | 2019-02-16 19:33 | NUR ---
INITIAL ROUNDS COMPLETED. PT DENIES ANY DISCOMFORT. SR UP X2, CALL LIGHT WITHIN REACH.
--- NOTE | 2019-02-16 20:23 | NUR ---
MORPHINE 2MG SIVP GIVEN FOR C/O CP 07/08. 3RD BAG OF MAG SULFATE 1GM INITIATED PER PROTOCOL.
--- NOTE | 2019-02-16 22:13 | NUR ---
ASSESSMENT COMPLETED AT 1950 HRS. VSS. ALERT AND ORIENTED TO PERSON, PLACE AND TIME. CHILLE. IV TO R CHEST INFUSAPORT WITH NS AT TKO AND MAGNESIUM 1GR RIDER AT 100CC/HR. IV PATENT. O2 2L HIGH FLOW O2. LUNGS DIMINISHED IN BASES BILAT. CHILEL. PALPABLE PERIPHERAL PULSES. PT REFUSES SCD'S. ABD SOFT WITH ACTIVE BS NOTED. BARR DRAINING YELLOW URINE. MORPHINE 2MG SIVP GIVNE AT 2015 HRS. FOR C/O CP 09/05. PM FSBS 260. 6 UNITS HUMALOG GIVEN SUB-Q TO UPPER ARM. PM MEDS GIVEN. PT CURRENTLY RESTING WITH EYES CLOSED. RESP EVEN AND REGULAR. PACED RHYTHM PER CM HR 96. SR UP X2, CALL LIGHT WITHIN REACH AND BED ALARM ON.
--- NOTE | 2019-02-17 00:28 | NUR ---
PT RESTING WITH EYES CLOSED. RESP EVEN AND REGULAR. SR UP X2,CALL LIGHT WITHIN REACH.
--- NOTE | 2019-02-17 01:16 | NUR ---
PT HAS C/O SOB. O2 SAT 97% ON 2LNC. HOB UP TO 50 DEGREES. LIPS PINK. NO RESP DISTRESS NOTED.
--- NOTE | 2019-02-17 01:36 | NUR ---
ZOFRAN 4MG SIVP GIVEN FOR C/O NAUSEA. WILL CONTINUE TO MONITOR.
--- NOTE | 2019-02-17 02:27 | NUR ---
PT RESTING WITH EYES CLOSED. RESP EVEN AND REGULAR. SR UP X2, CALL LIGHT WITHIN REACH.
[2019-02-17 04:00] VITALS: BP 103/74
--- NOTE | 2019-02-17 04:28 | NUR ---
PT STATES FEELS MUCH IMPROVED AT THIS TIME. SR UP X2, CALL LIGHT WITHIN REACH AND CALL LIGHT WITHIN REACH.
[2019-02-17 05:39] LABS: BASOPHILS 0.5 % (0-2); EOSINOPHILS 5.1 % (0-7); HEMATOCRIT 25.9 % (42.0-54.0); HEMOGLOBIN 9.2 g/dL (13.5-17.5); IMMATURE GRANULOCYTES 0.5 % (0-5); LYMPHOCYTES 12.9 % (15-50); MCH 35.8 pg (26.0-34.0); MCHC 35.5 g/dL (31.0-37.0); MEAN PLATELET VOLUME 9.9 fL (7.4-10.4); MONOCYTES 11.1 % (2-11); NEUTROPHILS 69.9 % (40-80); RBC 2.57 10x6/uL (4.20-6.10); RDW 16.4 % (11.5-14.5); WBC 2.2 10x3/uL (4.8-10.8)
[2019-02-17 06:05] LABS: MCV 100.8 fL (80.0-100.0); PLATELET COUNT 178 10x3/uL (130-400)
[2019-02-17 06:16] LABS: CALCIUM 8.4 mg/dL (8.5-10.1); CARBON DIOXIDE 24.4 mmol/L (21.0-32.0); CREATININE - SERUM 1.2 mg/dL (0.6-1.3); PHOSPHOROUS 2.8 mg/dL (2.5-4.9); POTASSIUM - SERUM 4.4 mmol/L (3.5-5.1)
--- NOTE | 2019-02-17 06:33 | NUR ---
PT STATES HE FEELS MUCH IMPROVED THIS AM. AM FSBS 233. 4 UNITS HUMALOG GIVEN SUB-Q TO UPPER L ARM. NEEDS MET; WILL CONTINUE TO MONITOR.
--- NOTE | 2019-02-17 07:10 | NUR ---
AM ROUNDS- PT RECEIVING BREATHING TREATMENT AT THIS TIME. PT A/OX 4, RT INFUSAPORT INFUSING NS AT KVO. BARR CATHETER DRAINING YELLOW URINE TO GRAVITY. SCRUMMASTER AT BEDSIDE TO GET VITAL SIGNS. PT DENIES ANY NEEDS AT THIS TIME. CALL LIGHT IN REACH, BEDSIDE RAILS X2, NAD NOTED, WILL CONTINUE PLAN OF CARE.
[2019-02-17 08:00] VITALS: BP 109/79
--- NOTE | 2019-02-17 09:18 | NUR ---
AM MEDS GIVEN AT THIS TIME. PT UP TO CHAIR, DENIES ANY NEEDS AT THIS TIME. CALL LIGHT IN REACH, NAD NOTED, WILL CONTINUE TO MONITOR.
--- NOTE | 2019-02-17 11:33 | NUR ---
CALLED PHARMACY AND SPOKE WITH JUAN, INFORMED HIM THAT I NEED GRANIX FOR PT.
[2019-02-17 12:00] VITALS: BP 84/51
--- NOTE | 2019-02-17 14:30 | NUR ---
HELPED PT BACK TO BED, SCDS ON BILAT. PT DENIES ANY NEEDS AT THIS TIME. CALL LIGHT IN REACH, NAD NOTED, WILL CONTINUE TO MONITOR.
[2019-02-17 16:00] VITALS: BP 101/66
--- NOTE | 2019-02-17 19:11 | NUR ---
INITIAL ROUNDS COMPLETED. NO DISTRESS NOTED. SR UP X2, CALL LIGHT WITHIN REACH.
[2019-02-17 20:23] VITALS: BP 103/62
--- NOTE | 2019-02-17 21:48 | NUR ---
ASSSESSMENT COMPLETED AT 1950 HRS. TYLENOL 650 MG PO GIVEN FOR C/O ACOSTA. ALERT AND ORIENTED TO PERSON, PLACE AND TIME. CHILEL. O2 2L HF O2. PACED RHYTHM PER CM HR 93. LUNGS DIMINISHED IN BASES BILAT. PALPABLE PERIPHERAL PULSES. BARR DRAINING CONCENTRATED URINE. PT REFUSES SCD'S. MORPHINE 2MG SIVP GIVEN AT 2006 HRS FOR C/O CP 07/08. PM FSBS 220. 4 UNITS HUMALOG GIVEN SUB-Q TO UPPER L ARM. PM MEDS GIVEN. PT CURRENTLY WATCHING TV, DENIES ANY DISCOMFORT. SR UP X2, CALL LIGHT WITHINREACH.
[2019-02-18] VITALS (12 sets, daily range): BP systolic 99–122; BP diastolic 60–83
--- NOTE | 2019-02-18 00:03 | NUR ---
PT RESTING WITH EYES CLOSED. RESP EVEN AND REGULAR. SR UP X2, CALL LIGHT WITHIN REACH.
--- NOTE | 2019-02-18 02:08 | NUR ---
PT RESTING WITH EYES CLOSED. RESP EVEN AND REGULAR. SR UP X2, CALL LIGHT WITHIN REACH.
--- NOTE | 2019-02-18 04:31 | NUR ---
PT RESTING WITH EYES CLOSED. RESP EVEN AND REGULAR. SR UP X2, CALL LIGHT WITHIN REACH.
--- NOTE | 2019-02-18 05:44 | NUR ---
HIBICLENS BATH DONE. PT TOLERATED ACTIVITY WELL.
[2019-02-18 06:37] LABS: ANION GAP 15.4 mmol/L (8-16); CALCIUM 8.8 mg/dL (8.5-10.1); CREATININE - SERUM 1.4 mg/dL (0.6-1.3); MAGNESIUM - SERUM 1.8 mg/dL (1.8-2.4); PHOSPHOROUS 2.6 mg/dL (2.5-4.9); POTASSIUM - SERUM 4.4 mmol/L (3.5-5.1)
[2019-02-18 06:38] LABS: BASOPHILS 0.6 % (0-2); EOSINOPHILS 5.7 % (0-7); HEMATOCRIT 25.5 % (42.0-54.0); HEMOGLOBIN 8.8 g/dL (13.5-17.5); IMMATURE GRANULOCYTES 4.6 % (0-5); MCH 34.9 pg (26.0-34.0); MCHC 34.5 g/dL (31.0-37.0); MCV 101.2 fL (80.0-100.0); MEAN PLATELET VOLUME 10.2 fL (7.4-10.4); NEUTROPHILS 63.1 % (40-80); PLATELET COUNT 190 10x3/uL (130-400); RBC 2.52 10x6/uL (4.20-6.10); RDW 16.9 % (11.5-14.5)
[2019-02-18 06:42] LABS: WBC 3.5 10x3/uL (4.8-10.8)
--- NOTE | 2019-02-18 10:13 | NUR ---
SPOKE WITH HARRY LAI FROM [employer]. PT HAD A HEART CATH BY DR. JENSEN. 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 GAVE 1250 UNITS HEPARIN, INTGRILIN BOLUS 14.6MG, 600MG PLAVIX, 2 VERSED, 100 FENTANYL, 7 LUXEMBOURGISH EXOCIL LEFT GROIN. PT IS A LITTLE FROWSY BUT STILL VERBAL.
--- NOTE | 2019-02-18 10:30 | NUR ---
PT RETURNED FROM [place] BLOWER VIA BED. LAYING FLAT. O2 AT 4L VIA HIGH FLOW NC WILL WEAN BACK DOWN TO 2L VIA NC. VS STABLE. PT'S AT BEDSIDE. LEFT GROIN SOFT AND SHOWS NO S/S OF HEMATOMA, DRESSING C/D/I. PP CHECKED. NS INFUSING AT 100ML/HR THROUGH RT CHEST INFUSPORT. PT HAS NO FURTHER NEEDS AT THIS TIME. BED LOW. CL IN REACH/ WILL CONTINUE TO MONITOR
--- NOTE | 2019-02-18 10:45 | NUR ---
LEFT GROIN SOFT, SHOWS NO S/S OF HEMATOMA, DRESSING C/D/I/ TURNED DOWN TO 3.5L O2 SAT AT 93%. WILL CONTINUE TO MONITOR. PP CHECKED.
--- NOTE | 2019-02-18 11:45 | NUR ---
LEFT GROIN SOFT, SHOWS NO S/S OF HEMATOMA, DRESSING C/D/I/ TURNED DOWN TO 3L O2 SAT AT 93%. WILL CONTINUE TO MONITOR. PP CHECKED.
--- NOTE | 2019-02-18 12:00 | NUR ---
LEFT GROIN SOFT, SHOWS NO S/S OF HEMATOMA, DRESSING C/D/I/ TURNED DOWN TO 2L O2 SAT AT 94%. WILL CONTINUE TO MONITOR. PP CHECKED. AT BEDSIDE. PT AND PT'S AWARE OF BEDREST AND LAYING FLAT TILL 1430.
--- NOTE | 2019-02-18 12:08 | MORECARE ---
CASE MANAGEMENT DISCHARGE SUMMARY PATIENT: CARLENE ALLEN III UNIT: [id number] ADM DATE: 02/13/19 AGE: 78 : 42 SEX: M ROOM/BED: D.6528 AUTHOR: ALONSO,DOC PHYSICIAN: REFERRING PHYSICIAN: ANNA MARIE VALDEZ MD DATE OF SERVICE: 02/18/19 Discharge Plan Patient Name: CARLENE ALLEN Facility: [facility]:[place] : 1940 Planned Disposition: Home Anticipated Discharge Date: Discharge Date: Expected LOS: Initial Reviewer: [email or web address] Initial Review Date: 02/15/2019 Generated: 02/18/19 1:07 pm Comments DCP- Discharge Planning Updated by [email or web address]: Chuy Gonzales on 02/18/19 11:[address] Patient Name: CARLENE ALLEN Encounter No: [id number] : 1940 Primary Insurance: [facility] MEDICARE SOLUTIONS Anticipated DC Date: Planned Disposition: Home DCP follow-up note: CM MET WITH PT AND SPOUSE IN ROOM TO DISCUSS DISCHARGE NEEDS AND PLANNING. CARLENE ALLEN provided verbal consent to discuss current and ongoing needs with/in the presence of: HIS OF OVER 50 YEARS. CM DISCUSSED AVAILABILITY OF HOME HEALTH, REHAB SERVICES AND MEDICAL EQUIPMENT. PT DENIES DISCHARGE NEEDS. SPOUSE TO TRANSPORT HOME AT DISCHARGE. IMPORTANT MESSAGE FROM MEDICARE PROVIDED AND EXPLAINED. PT'S SPOUSE REPORTS PT IS WEAK AND NEEDS SOME THERAPY SHE THINKS SHE IS GOING TO HAVE TO LIFT HIM OUT OF BED AT HOME AND IS NOT ABLE TO DO THIS. CM DISCUSSED THERAPY OPTIONS, LOCATIONS AND PROVIDERS WELL NEED FOR INSURANCE AUTHORIZATION FOR SERVICES. PT IS WILLING FOR THERAPY EVALUATIONS AND SERVICES WHILE HERE AT HOSPITAL. CM NOTIFIED DANDY PLUNKETT, OBTAINED ORDERS FOR PHYSICAL AND OCCUPATIONAL THERAPY EVALUATIONS. CM TO FOLLOW AND ASSIST NEEDED. PT WANTS TO RETURN HOME WITH SPOUSE. PT'S SPOUSE THINKS PT IS WEAK AND MAY NEED THERAPY SERVICES PRIOR TO OR AFTER RETURNING HOME. CM WAITING PHYSICAL AND OCCUPATIONAL THERAPY EVALUATIONS. Chuy Gonzales CASE RENE DCP- Discharge Planning Updated by [email or web address]: Jodee Hernandez on 02/15/19 4:[address] Patient Name: CARLENE ALLEN Admission Status: ER Accout number: [id number] Admission Date: 02-13-2019 : 1940 Admission Diagnosis:PNEUMONIA, UNSPECIFIED ORGANISM Attending: JENNIFER VALDEZ Current LOS: 2 Anticipated DC Date: Planned Disposition: Home Primary Insurance: [facility] MEDICARE SOLUTIONS Discharge Planning Comments: CM met with patient at bedside after explaining CM role and obtaining verbal consent. Patient lives at home with his Mariama and plans to return there upon discharge. Patient feels this would be a safe discharge. CM discussed availability / needs of home health and medical equipment. Patient denies any discharge needs at this time. Patient states he will have his drive him home upon discharge. CM will continue to follow and assist as needed with discharge planning / needs. Service Line Coordinator: Jodee Hernandez DCPIA - Discharge Planning Initial Assessment Updated by [id number]: Jodee Hernandez on 02/15/19 5:26 pm * Is the patient Alert and Oriented? Yes * How many steps to enter\exit or inside your home? * PCP PULLIG * Pharmacy [facility] * Preadmission Environment Home with Family * ADLs Independent * Other Equipment GLUCOMETER, B/P CUFF, WALKER, CANE, ELECTRIC SCOTTER * List name and contact numbers for known caregivers / representatives who currently or will assist patient after discharge: MARIAMA ALLEN - SPOUSE- [phone] * Verbal permission to speak to the caregivers and representatives has been obtained from the patient. Yes * Community resources currently utilized None * Additional services required to return to the preadmission environment? No * Can the patient safely return to the preadmission environment? Yes * Has this patient been hospitalized within the prior 30 days at any hospital? No Coverage Notice Reviewer: [email or web address] - Chuy Gonzales Notice Issued Date-Time: 02/18/2019 11:50 Notice Type: IM Discharge Notice Notice Delivered To: Patient Relationship to Patient: Catering Barista Name: Delivery Method: HAND - Hand Delivered Tana Days: Prior Verbal Notification: Recipient Understood Notice: Yes Recipient Signature: Yes Med Rec Note Co-signed by Attending: Coverage Notice Comment: Last DP export: 02/15/19 4:34 p Patient Name: CARLENE ALLEN Page 07837 at 1208 All edits/amendments must be made on the electronic document DICTATION DATE: 02/18/191206 ENTRY SPECIALIST: DM 02/18/191206 RPT#: [id number] DC DATE: STATUS: ADM IN [facility] [address] [place] [address] END OF REPORT
--- NOTE | 2019-02-18 18:16 | NUR ---
I have reviewed this patient and I concur with the Shift Assessment completed by the Licensed Practical Nurse today this shift.
--- NOTE | 2019-02-18 19:15 | NUR ---
ASSESSMENT COMPLETE, PT A&O. RESPERATIONS NONLABORED ON O2 AT 2 LITERS VIA HIGH FLOW CANULA. RIGHT CHEST IFP WITH NS INFUSING AT KVO DRSG INTACT. DRSG NOTED TO LEFT GROIN, C/D/I, NO SWELLING, BLEEDING OR HEMATOMA NOTED. SITE SOFT TO TOUCH. PEDAL PULSES DOPPLERED. PT CURRENTLY DENIES PAIN OR NEEDS, BED LOW, CL IN REACH.
--- NOTE | 2019-02-18 21:27 | NUR ---
HS MEDS GIVEN WITH FRESH ICE WATER. BS 223, COVRED PER S/S. PT CURRENTLY DENIES PAIN. BED LOW, CL IN REACH.
--- NOTE | 2019-02-18 23:01 | NUR ---
MORPHINE 2 MG GIVEN FOR C/O PAIN TO CHEST. RATES PAIN AT A 2 ON PAIN SCALE.
[2019-02-19] VITALS: BP 98/42
--- NOTE | 2019-02-19 02:15 | NUR ---
RESTING WITH EYES CLOSED, RESPERATIONS EVEN, NO S/S DISTRESS NOTED.
[2019-02-19 04:00] VITALS: BP 103/67
[2019-02-19 04:48] LABS: HEMATOCRIT 25.5 % (42.0-54.0); HEMOGLOBIN 8.8 g/dL (13.5-17.5); MCH 35.1 pg (26.0-34.0); MCHC 34.5 g/dL (31.0-37.0); MCV 101.6 fL (80.0-100.0); PLATELET COUNT 220 10x3/uL (130-400); RBC 2.51 10x6/uL (4.20-6.10); RDW 17.3 % (11.5-14.5); WBC 4.3 10x3/uL (4.8-10.8)
--- NOTE | 2019-02-19 04:55 | NUR ---
I have reviewed this patient and I concur with the Shift Assessment completed by the Licensed Practical Nurse today this shift.
[2019-02-19 05:06] LABS: ANION GAP 15.4 mmol/L (8-16); CALCIUM 8.7 mg/dL (8.5-10.1); CARBON DIOXIDE 24.6 mmol/L (21.0-32.0); CREATININE - SERUM 1.4 mg/dL (0.6-1.3); MAGNESIUM - SERUM 1.8 mg/dL (1.8-2.4); PHOSPHOROUS 3.2 mg/dL (2.5-4.9)
[2019-02-19 06:55] LABS: ANISOCYTOSIS 1+; EOSINOPHILS 5 % (0-7); LYMPHOCYTES 11 % (15-50); MONOCYTES 14 % (2-11); NEUTROPHILS 59 % (40-80); PLATELET ESTIMATE NORMAL
--- NOTE | 2019-02-19 08:04 | NUR ---
ASSESSMENT DONE. DENIES NEEDS
[2019-02-19 08:29] VITALS: BP 114/68
--- NOTE | 2019-02-19 10:23 | NUR ---
I have reviewed this patient and I concur with the Shift Assessment completed by the Licensed Practical Nurse today this shift.
[2019-02-19 11:24] VITALS: BP 102/70
--- NOTE | 2019-02-19 11:34 | MORECARE ---
CASE MANAGEMENT DISCHARGE SUMMARY PATIENT: CARLENE ALLEN III UNIT: [id number] ADM DATE: 02/13/19 AGE: 78 : 44 SEX: M ROOM/BED: D.5122 AUTHOR: AYDEN GUPTA PHYSICIAN: REFERRING PHYSICIAN: ANNA MARIE VALDEZ MD DATE OF SERVICE: 02/19/19 Discharge Plan Patient Name: CARLENE ALLEN Facility: [facility]:[place] : 1940 Planned Disposition: Home with Home Health Anticipated Discharge Date: 02/20/19 Discharge Date: Expected LOS: 7 Initial Reviewer: [id number] Initial Review Date: 02/15/2019 Generated: 02/19/19 12:34 pm Comments DCP- Discharge Planning Updated by [id number]: Chuy Gonzales on 02/19/19 10:[address] Patient Name: CARLENE ALLEN Encounter No: [id number] : 1940 Primary Insurance: [facility] MEDICARE SOLUTIONS Anticipated DC Date: 02-20-2019 Planned Disposition: Home with Home Health External Planned Provider: [facility] DCP follow-up note: CM REVIEWED CHART AND THERAPY NOTES, MET WITH PT IN ROOM, DISCUSSED THERAPY RESULTS, AVAILABILITY OF REHAB SERVICES, LOCATIONS AND PROVIDERS. PT DECLINES REHAB PLACEMENT. PT STATES HE WILL GO HOME AND WILL ACCEPT HOME HEALTH FOR PHYSICAL THERAPY. PT STATES HE IS STONG ENOUGH TO GO HOME DESPITE WHAT HIS SAYS. CM GAVE PROVIDER LISTING FOR HOME HEALTH, PT CHOICE SIGNED FOR [facility] OR NO PREFERENCE ON PROVIDER IF [facility] IS NOT ABLE TO ACCEPT. PT PLANS TO DISCHARGE HOME WITH SPOUSE, STATES HIS WILL TRANSPORT HOME AT DISCHARGE. PT DECLINES INPATIENT REHAB, WILL ACCEPT HOME HEALTH FOR PHYSICAL THERAPY. CM TO [facility]ANGE [facility] WITH PHYSICIAN AGREEMENT AND ORDERS. SHONDA Nichols DCP- Discharge Planning Updated by [id number]: Chuy Gonzales on 02/18/19 11:[address] Patient Name: CARLENE ALLEN Encounter No: [id number] : 1940 Primary Insurance: [facility] MEDICARE SOLUTIONS Anticipated DC Date: Planned Disposition: Home DCP follow-up note: CM MET WITH PT AND SPOUSE IN ROOM TO DISCUSS DISCHARGE NEEDS AND PLANNING. CARLENE ALLEN provided verbal consent to discuss current and ongoing needs with/in the presence of: HIS OF OVER 50 YEARS. CM DISCUSSED AVAILABILITY OF HOME HEALTH, REHAB SERVICES AND MEDICAL EQUIPMENT. PT DENIES DISCHARGE NEEDS. SPOUSE TO TRANSPORT HOME AT DISCHARGE. IMPORTANT MESSAGE FROM MEDICARE PROVIDED AND EXPLAINED. PT'S SPOUSE REPORTS PT IS WEAK AND NEEDS SOME THERAPY SHE THINKS SHE IS GOING TO HAVE TO LIFT HIM OUT OF BED AT HOME AND IS NOT ABLE TO DO THIS. CM DISCUSSED THERAPY OPTIONS, LOCATIONS AND PROVIDERS WELL NEED FOR INSURANCE AUTHORIZATION FOR SERVICES. PT IS WILLING FOR THERAPY EVALUATIONS AND SERVICES WHILE HERE AT HOSPITAL. CM NOTIFIED DANDY PLUNKETT, OBTAINED ORDERS FOR PHYSICAL AND OCCUPATIONAL THERAPY EVALUATIONS. CM TO FOLLOW AND ASSIST NEEDED. PT WANTS TO RETURN HOME WITH SPOUSE. PT'S SPOUSE THINKS PT IS WEAK AND MAY NEED THERAPY SERVICES PRIOR TO OR AFTER RETURNING HOME. CM WAITING PHYSICAL AND OCCUPATIONAL THERAPY EVALUATIONS. Chuy Gonzales, CASE MANAGEMENT DCP- Discharge Planning Updated by [id number]: Jodee Hernandez on 02/15/19 4:[address] Patient Name: CARLENE ALLEN Admission Status: ER Accout number: [id number] Admission Date: 02-13-2019 : 1940 Admission Diagnosis:PNEUMONIA, UNSPECIFIED ORGANISM Attending: JENNIFER VALDEZ Current LOS: 2 Anticipated DC Date: Planned Disposition: Home Primary Insurance: [facility] MEDICARE SOLUTIONS Discharge Planning Comments: CM met with patient at bedside after explaining CM role and obtaining verbal consent. Patient lives at home with his Mariama and plans to return there upon discharge. Patient feels this would be a safe discharge. CM discussed availability / needs of home health and medical equipment. Patient denies any discharge needs at this time. Patient states he will have his drive him home upon discharge. CM will continue to follow and assist as needed with discharge planning / needs. Career Development Specialist: Jodee Hernandez DCPIA - Discharge Planning Initial Assessment Updated by [id number]: Jodee Hernandez on 02/15/19 5:26 pm * Is the patient Alert and Oriented? Yes * How many steps to enter\exit or inside your home? * PCP P[facility] * Pharmacy [facility] * Preadmission Environment Home with Family * ADLs Independent * Other Equipment GLUCOMETER, B/P CUFF, WALKER, CANE, ELECTRIC SCOTTER * List name and contact numbers for known caregivers / representatives who currently or will assist patient after discharge: MARIAMA ALLEN - SPOUSE- [phone] * Verbal permission to speak to the caregivers and representatives has been obtained from the patient. Yes * Community resources currently utilized None * Additional services required to return to the preadmission environment? No * Can the patient safely return to the preadmission environment? Yes * Has this patient been hospitalized within the prior 30 days at any hospital? No Coverage Notice Reviewer: [id number] Gonzales Notice Issued Date-Time: 02/18/2019 11:50 Notice Type: IM Discharge Notice Notice Delivered To: Patient Relationship to Patient: Product Safety Tester Name: Delivery Method: HAND - Hand Delivered Tana Days: Prior Verbal Notification: Recipient Understood Notice: Yes Recipient Signature: Yes Med Rec Note Co-signed by Attending: Coverage Notice Comment: Reviewer: [email or web address] Gonzales Notice Issued Date-Time: 02/19/2019 9:05 Notice Type: Patient Choice Letter Notice Delivered To: Patient Relationship to Patient: Product Safety Tester Name: Delivery Method: HAND - Hand Delivered Tana Days: Prior Verbal Notification: Recipient Understood Notice: Yes Recipient Signature: Yes Med Rec Note Co-signed by Attending: Coverage Notice Comment: [facility] #[facility]; NO PREFERENCE ON HOME HEALTH PROVIDER #2 Last DP export: 02/18/19 11:08 a Patient Name: CARLENE ALLEN Page [phone] at 1134 All edits/amendments must be made on the electronic document DICTATION DATE: 02/19/19 113 CURRICULUM CONSULTANT: CAMRON 02/19/19 1134 RPT#: [id number] DC DATE: STATUS: ADM IN [facility] [address] [place] [address] END OF REPORT
--- NOTE | 2019-02-19 13:38 | OP ---
PATIENT NAME: CARLENE ALLEN III MEDICAL RECORD: [id number] :44 LOCATION:D.M2 D.2 ADMISSION DATE:02/13/19 SURGEON: NISH VERGARA MD DATE OF OPERATION: 02/18/2019 PROCEDURES: 1. Laser atherectomy vein graft to RCA. 2. PTCA stent vein graft to RCA. 3. Selective coronary and vein graft angiography. INDICATION: Unstable angina and coronary artery disease. PROCEDURE IN DETAIL: After informed consent was obtained and after a detailed description of risks, benefits as well as alternative therapies, the patient elected to proceed with angiogram and angioplasty. The right femoral area had a preexisting sheath. All catheters exchanged through this sheath. FINDINGS: The vein graft to the right coronary artery has 90% to 95% stenosis times 2. The distal lesion, we were able to balloon with a 2.5 balloon up to 23 atmospheres. Laser atherectomy was performed of the distal lesion as well as the proximal lesion. We were able to get a stent in the proximal lesion, which was a 3.5 x 22 mm [place] taken to 23 atmospheres. Result was 0% to 20% residual stenosis. No angiographic evidence of dissection or thrombus with restorationism of KARLA-3 flow. IMPRESSION: Successful percutaneous transluminal coronary angioplasty stent, laser atherectomy of the vein graft to the right coronary artery going from 90% to 95% stenosis to 0% residual stenosis on the first lesion, 10% to 20% stenosis on the second lesion. TRANSINT:[id number] Voice Confirmation ID: [id number] DOCUMENT ID: [id number] NISH VERGARA MD at 1338 CC: [id number] DICTATION DATE: 02/18/19 1000 SENIOR PARALEGAL: 02/18/19 1109 ADM IN [place] [id number] [place] [address]
--- NOTE | 2019-02-19 14:35 | NUR ---
Nutrition Follow-up: Pt reports poor appetite and constipation. Likes Glucerna. Diet: Diabetic PO intake: 35% avg x 4 meals No new wt Last BM: 02/12 per pt Labs noted: Glu 173 Meds noted: Humalog Continue current diet as tolerated. +Glucerna with meals. [place] food preferences within diet restrictions. RD following.
[2019-02-19 15:50] VITALS: BP 110/78
--- NOTE | 2019-02-19 17:43 | NUR ---
WITHOUT CHANGES OR DISTRESS NOTED AT THIS TIME
--- NOTE | 2019-02-19 19:20 | NUR ---
ASSESSMENT COMPLETE, PT A&O. PT C/O OF FEELING SOB, O2 AT 3 LITERS VIA NC. MANUFACTURING QUALITY MANAGER AT BED SIDE TO OBTAIN VITALS. RIGHT CHEST IFP WITH NS INFUSING AT KVO, DRSG INTACT. BARR DRAINING TO GRAVITY. PT C/O PAIN TO CHEST RATES PAIN AT A 3 ON PAIN SCALE. PT ASKING FOR MORPHINE, MORPHINE 2 MG GIVEN AT PTS REQUEST.
[2019-02-19 20:15] VITALS: BP 98/74
[2019-02-20 00:02] VITALS: BP 111/61
[2019-02-20 04:00] VITALS: BP 108/60
--- NOTE | 2019-02-20 04:28 | NUR ---
I have reviewed this patient and I concur with the Shift Assessment completed by the Licensed Practical Nurse today this shift.
[2019-02-20 06:37] LABS: ANION GAP 13.4 mmol/L (8-16); CALCIUM 8.7 mg/dL (8.5-10.1); CREATININE - SERUM 1.4 mg/dL (0.6-1.3); POTASSIUM - SERUM 4.4 mmol/L (3.5-5.1)
--- NOTE | 2019-02-20 07:54 | NUR ---
ASSESSMENT DONE. DENIES NEEDS
[2019-02-20 08:13] LABS: EOSINOPHILS 2.8 % (0-7); HEMOGLOBIN 8.7 g/dL (13.5-17.5); IMMATURE GRANULOCYTES 3.6 % (0-5); LYMPHOCYTES 9.1 % (15-50); MCH 34.9 pg (26.0-34.0); MCHC 34.8 g/dL (31.0-37.0); MCV 100.4 fL (80.0-100.0); MONOCYTES 18.3 % (2-11); NEUTROPHILS 65.2 % (40-80); PLATELET COUNT 243 10x3/uL (130-400); RBC 2.49 10x6/uL (4.20-6.10); RDW 17.2 % (11.5-14.5)
[2019-02-20 08:45] VITALS: BP 106/68
--- NOTE | 2019-02-20 11:10 | NUR ---
I have reviewed this patient and I concur with the Shift Assessment completed by the Licensed Practical Nurse today this shift.
[2019-02-20 13:57] VITALS: BP 92/59
[2019-02-20 17:30] VITALS: BP 92/67
--- NOTE | 2019-02-20 18:39 | NUR ---
WITHOUT CHANGES OR DISTRESS NOTED AT THIS TIME.
[2019-02-20 20:00] VITALS: BP 99/63
[2019-02-21] VITALS: BP 106/60
--- NOTE | 2019-02-21 01:41 | NUR ---
I have reviewed this patient and I concur with the Shift Assessment completed by the Licensed Practical Nurse today this shift.
--- NOTE | 2019-02-21 03:03 | NUR ---
RESTING WITH EYES CLOSED, RESPERATIONS EVEN, NO S/S DISTRESS NOTED.
[2019-02-21 07:15] LABS: EOSINOPHILS 2.7 % (0-7); HEMATOCRIT 24.6 % (42.0-54.0); HEMOGLOBIN 8.6 g/dL (13.5-17.5); IMMATURE GRANULOCYTES 3.5 % (0-5); MCH 35.1 pg (26.0-34.0); MCV 100.4 fL (80.0-100.0); MEAN PLATELET VOLUME 10.1 fL (7.4-10.4); MONOCYTES 11.7 % (2-11); NEUTROPHILS 72.1 % (40-80); PLATELET COUNT 217 10x3/uL (130-400); RBC 2.45 10x6/uL (4.20-6.10); RDW 17.6 % (11.5-14.5)
[2019-02-21 07:17] LABS: ANION GAP 14.9 mmol/L (8-16); CALCIUM 8.8 mg/dL (8.5-10.1); CARBON DIOXIDE 25.1 mmol/L (21.0-32.0); CREATININE - SERUM 1.4 mg/dL (0.6-1.3); WBC 6.3 10x3/uL (4.8-10.8)
--- NOTE | 2019-02-21 07:47 | NUR ---
AWAKE AND ALERT. TELEMERTY SHOWS SR/PACED AT 61. 02 AT 3 L/M PER NC. LEFT CHEST IP PATENT WITN NS AT 10. DENIES ANY NEEDS. SR UP WITH CALL LIGHT IN REACH. WILL MONITOR
[2019-02-21 09:28] VITALS: BP 98/67
[2019-02-21 12:53] VITALS: BP 93/49
--- NOTE | 2019-02-21 13:50 | NUR ---
UP IN BEDSIDE CHAIR. MAG CITRATE GIVEN FOR CONSTIPITION. WILL MONITOR
--- NOTE | 2019-02-21 15:43 | NUR ---
Rehab Note- Acute Inpatient Rehab prescreen order received. The patient has [facility] insuranca and will require a PreAuth prior to an inpatient acute rehab stay. Will begin the PreAuth process. Thank you for this referral! Shantal Villasenor RN Clinical Liaison, [facility] Rehab
--- NOTE | 2019-02-21 16:11 | NUR ---
OT NOTE: PT COMPLETED BED MOB WITH SBA. PT COMPLETED TRANSFER WITH SBA. PT EXHIBITS SOB WITH ACTIVITY. THANK YOU, KEO HERBERT
--- NOTE | 2019-02-21 16:13 | NUR ---
OT NOTE: PT COMPLETED SITTING BALANCE AXS WITH SBA. THANK YOU, KEO HERBERT
[2019-02-21 17:00] VITALS: BP 94/78
--- NOTE | 2019-02-21 17:37 | NUR ---
I have reviewed this patient and I concur with the Shift Assessment completed by the Licensed Practical Nurse today this shift.
[2019-02-21 20:00] VITALS: BP 102/64
[2019-02-22] VITALS: BP 109/75
--- NOTE | 2019-02-22 02:56 | NUR ---
RESTING WITH EYES CLOSED, RESPERTIONS EVEN, NO S/S DISTRESS NOTED.
[2019-02-22 04:00] VITALS: BP 92/63
[2019-02-22 06:03] LABS: ANION GAP 14.4 mmol/L (8-16); CARBON DIOXIDE 27.1 mmol/L (21.0-32.0); POTASSIUM - SERUM 4.5 mmol/L (3.5-5.1)
[2019-02-22 06:09] LABS: CALCIUM 8.7 mg/dL (8.5-10.1); CREATININE - SERUM 1.6 mg/dL (0.6-1.3)
[2019-02-22 06:11] LABS: BASOPHILS 0.9 % (0-2); EOSINOPHILS 1.4 % (0-7); HEMATOCRIT 27.2 % (42.0-54.0); HEMOGLOBIN 9.3 g/dL (13.5-17.5); IMMATURE GRANULOCYTES 9.2 % (0-5); LYMPHOCYTES 7.3 % (15-50); MCH 35.6 pg (26.0-34.0); MCHC 34.2 g/dL (31.0-37.0); MEAN PLATELET VOLUME 9.9 fL (7.4-10.4); MONOCYTES 15.3 % (2-11); NEUTROPHILS 65.9 % (40-80); RBC 2.61 10x6/uL (4.20-6.10); RDW 17.9 % (11.5-14.5)
[2019-02-22 06:25] LABS: MCV 104.2 fL (80.0-100.0); PLATELET COUNT 271 10x3/uL (130-400); WBC 8.1 10x3/uL (4.8-10.8)
--- NOTE | 2019-02-22 06:49 | NUR ---
I have reviewed this patient and I concur with the Shift Assessment completed by the Licensed Practical Nurse today this shift.
--- NOTE | 2019-02-22 07:28 | NUR ---
AWAKE AND ALERT. TELEMERTY SHOWS PACED AT 92. O2 AT 3 L/M PER NC. BARR CATH PATIENT TO GRAVITY BAG. LEFT GROIN CATH SITE WITH BRUISING. UP FOR MEALS WITH ASSIST. USES BEDSIDE COMMODE. WILL MONITOR. SR UP WITH CALL LIGHT IN REACH
[2019-02-22 09:01] VITALS: BP 102/58
--- NOTE | 2019-02-22 12:53 | NUR ---
Nutrition Follow-up: Pt reports appetite improving. Per intake record, pt ate ~25% of breakfast this AM. Diet: Diabetic, Glucerna TID No new wt Last BM: 02/22 Labs noted: Glu 164 Meds noted: Humalog, Lasix, Vit C, Vit D Continue current diet/supplement as tolerated. Encourage PO intake. [place] food preferences within diet restrictions. MD may consider appetite stimulant. RD following.
[2019-02-22 13:19] VITALS: BP 89/56
--- NOTE | 2019-02-22 14:50 | NUR ---
OT NOTE: PT COMPLETED BED MOB WITH SPV. PT COMPLETED ADL MOB WITH SBA. PT EXHIBITED SOB. THANK YOU, KEO HERBERT
[2019-02-22 17:58] VITALS: BP 92/63
--- NOTE | 2019-02-22 18:16 | NUR ---
LYING QUIETLY. C/O HEADACHE. TYLENOL 500MG GIVEN FOR RELIEF
--- NOTE | 2019-02-22 19:38 | NUR ---
RECEIVED REPORT, WILL ASSUME CARE OF PT, COMPLAINS OF GERENERLIZED PAIN, ASKING FOR MORPHINE, GAVE ORDERED, BED IS LOW, SRX2, CALL LIGHT IN REACH, WILL CONTINUE PLAN OF CARE
[2019-02-22 20:10] VITALS: BP 86/61
[2019-02-23 00:05] VITALS: BP 80/49
--- NOTE | 2019-02-23 01:57 | NUR ---
I have reviewed this patient and I concur with the Shift Assessment completed by the Licensed Practical Nurse today this shift.
--- NOTE | 2019-02-23 03:34 | NUR ---
SLEEPING, NO DISTRESS NOTICED AT THIS TIME, BED IS LOW, SRX2, CALL LIGHT IN REACH, WILL CONTINUE PLAN OF CARE
[2019-02-23 04:10] VITALS: BP 89/63
[2019-02-23 05:05] LABS: BASOPHILS 0.7 % (0-2); HEMATOCRIT 25.8 % (42.0-54.0); HEMOGLOBIN 8.7 g/dL (13.5-17.5); IMMATURE GRANULOCYTES 8.5 % (0-5); LYMPHOCYTES 10.3 % (15-50); MCH 35.5 pg (26.0-34.0); MCHC 33.7 g/dL (31.0-37.0); MCV 105.3 fL (80.0-100.0); MEAN PLATELET VOLUME 9.5 fL (7.4-10.4); MONOCYTES 14.1 % (2-11); NEUTROPHILS 64.4 % (40-80); RBC 2.45 10x6/uL (4.20-6.10); RDW 18.5 % (11.5-14.5); WBC 7.5 10x3/uL (4.8-10.8)
[2019-02-23 05:24] LABS: PLATELET COUNT 210 10x3/uL (130-400)
[2019-02-23 05:45] LABS: ANION GAP 20.5 mmol/L (8-16); CALCIUM 8.5 mg/dL (8.5-10.1); CREATININE - SERUM 1.3 mg/dL (0.6-1.3); POTASSIUM - SERUM 4.5 mmol/L (3.5-5.1)
--- NOTE | 2019-02-23 07:20 | NUR ---
PATIENT REFUSED METANEB. DID TAKE REG UPDRAFT
[2019-02-23 08:13] VITALS: BP 96/66
--- NOTE | 2019-02-23 08:17 | NUR ---
ASSESSMENT DONE. DENIES NEEDS
[2019-02-23 12:49] VITALS: BP 95/65
--- NOTE | 2019-02-23 13:46 | NUR ---
I have reviewed this patient and I concur with the Shift Assessment completed by the Licensed Practical Nurse today this shift.
[2019-02-23 16:42] VITALS: BP 89/58
[2019-02-23 20:05] VITALS: BP 96/64
--- NOTE | 2019-02-23 20:20 | NUR ---
PAGE TO Che KUMAR APN FOR PATIENT C/O OF CHRONIC PAIN AND THAT HE IS GOING TO "LOOSE IT" IF HE DOES NOT GET ANY PAIN MEDS. PT REPORTED THAT HE TAKES ULTRAM AT HOME, BUT HERE HE WAS RECIEVING IV MORPHINE AND NOW THAT HAS BEEN STOPPED BY MD AND HE IS VERY, VERY, VERY UNHAPPY ABOUT SITUATION. ORDER TO GIVE ONE TIME DOSE OF ULTRAM 50MG ORAL AND SEE IF THAT HELPS PATIENT.
[2019-02-24] VITALS: BP 85/52
[2019-02-24 04:00] VITALS: BP 90/57
--- NOTE | 2019-02-24 05:39 | NUR ---
RESTING IN BED. AM MEDS GIVEN. CPOC.
[2019-02-24 06:07] LABS: ANION GAP 14.6 mmol/L (8-16); CALCIUM 9.2 mg/dL (8.5-10.1); CREATININE - SERUM 1.4 mg/dL (0.6-1.3); POTASSIUM - SERUM 4.6 mmol/L (3.5-5.1)
[2019-02-24 06:14] LABS: BASOPHILS 1.3 % (0-2); EOSINOPHILS 1.3 % (0-7); HEMATOCRIT 26.4 % (42.0-54.0); HEMOGLOBIN 8.8 g/dL (13.5-17.5); IMMATURE GRANULOCYTES 7.2 % (0-5); LYMPHOCYTES 9.6 % (15-50); MCH 35.1 pg (26.0-34.0); MCHC 33.3 g/dL (31.0-37.0); MCV 105.2 fL (80.0-100.0); MEAN PLATELET VOLUME 9.9 fL (7.4-10.4); MONOCYTES 14.2 % (2-11); NEUTROPHILS 66.4 % (40-80); PLATELET COUNT 222 10x3/uL (130-400); RBC 2.51 10x6/uL (4.20-6.10); RDW 18.9 % (11.5-14.5); WBC 8.6 10x3/uL (4.8-10.8)
--- NOTE | 2019-02-24 07:57 | NUR ---
ASSESSMENT DONE. DENIES NEEDS
[2019-02-24 08:37] VITALS: BP 94/58
--- NOTE | 2019-02-24 09:40 | NUR ---
I have reviewed this patient and I concur with the Shift Assessment completed by the Licensed Practical Nurse today this shift.
[2019-02-24 12:41] VITALS: BP 97/65
[2019-02-24 15:13] VITALS: BP 92/56
--- NOTE | 2019-02-24 17:20 | NUR ---
WITHOUT CHANGES OR DISTRESS NOTED AT THIS TIME. DENIES NEEDS
--- NOTE | 2019-02-24 19:02 | NUR ---
RECEIVED REPORT, WILL ASSUME CARE OF PT, DENIES ANY NEEDS, BED IS LOW, SRX2, CALL LIGHT IN REACH, WILL CONTINUE PLAN OF CARE
[2019-02-24 20:00] VITALS: BP 90/67
[2019-02-25] VITALS: BP 101/70
[2019-02-25 04:00] VITALS: BP 100/66
--- NOTE | 2019-02-25 05:55 | NUR ---
I have reviewed this patient and I concur with the Shift Assessment completed by the Licensed Practical Nurse today this shift.
--- NOTE | 2019-02-25 07:23 | NUR ---
ALERT AND ORIENTED. DENIES ANY NEEDS. O2 AT 3 L/M PER NC. RIGHT IP PATENT. BARR CATH TO BEDSIDE DRAINAGE. PT HAS A REHAB EVAL. SR UP WITH CALL LIGHT IN REACH
[2019-02-25 08:02] VITALS: BP 96/63
--- NOTE | 2019-02-25 10:50 | NUR ---
TO MODEL MAKER FIREARMS PER BED
[2019-02-25] MEDS ORDERED: PLAVIX75 MG PO (12:01)
[2019-02-25] MEDS ORDERED: LOPRESSOR25 MG PO (12:01)
[2019-02-25] MEDS ORDERED: FERROUS SULFAT325 MG PO (12:01)
--- NOTE | 2019-02-25 12:03 | NUR ---
OT NOTE: PT REFUSED IN AM; STATED THAT HE HAD A BAD MORNING AND COULD NOT CATCH HIS BREATH. WILL ATTEMPT LATER. PROSPER ESCALANTE, OTR/L
[2019-02-25] MEDS ORDERED: NITRO-DUR0.2 MG TRANSDERM (12:05)
[2019-02-25] MEDS ORDERED: ASPIRIN325 MG PO (12:05)
[2019-02-25] MEDS ORDERED: LASIX40 MG PO (12:05)
[2019-02-25] MEDS ORDERED: MUCINEX DM ER1 EAC1 PO (12:06)
[2019-02-25] MEDS ORDERED: MUCINEX600 MG PO (12:06)
[2019-02-25] MEDS ORDERED: SINGULAIR10 MG PO (12:06)
[2019-02-25] MEDS ORDERED: FLUTICASONE PRO16 GM NASAL (12:06)
[2019-02-25] MEDS ORDERED: PROTONIX40 MG PO (12:07)
[2019-02-25] MEDS ORDERED: JANUVIA50 MG PO (12:07)
--- NOTE | 2019-02-25 13:03 | MORECARE ---
CASE MANAGEMENT DISCHARGE SUMMARY PATIENT: CARLENE ALLEN III UNIT: [id number] ADM DATE: 02/13/19 AGE: 78 : 42 SEX: M ROOM/BED: D.7332 AUTHOR: AYDEN GUPTA PHYSICIAN: REFERRING PHYSICIAN: ANNA MARIE VALDEZ MD DATE OF SERVICE: 02/25/19 Discharge Plan Patient Name: CARLENE ALLEN [facility] [facility] 1940 Planned Disposition: Inpatient Rehab Anticipated Discharge Date: 02/25/19 Discharge Date: Expected LOS: 12 Initial Reviewer: [id number] Initial Review Date: 02/15/2019 Generated: 02/25/19 2:02 pm Comments DCP- Discharge Planning Updated by [id number]: Chuy Gonzales on 02/25/19 12:[address] Patient Name: CARLENE ALLEN Encounter No: [id number] : 1940 Primary Insurance: [facility] MEDICARE SOLUTIONS Anticipated DC Date: 02-25-2019 Planned Disposition: Inpatient Rehab External Planned Provider: [facility] DCP follow-up note: CM SPOKE TO [facility] OF INPATIENT REHAB, THEY RECEIVED AUTHORIZATION FROM INSURANCE FOR INPATIENT REHAB, THEY PLAN TO ACCEPT PT TODAY FOR REHAB. PT AND SPOUSE NOTIFIED, BOTH IN AGREEMENT WITH DISCHARGE TO INPATIENT REHAB AT [place] TODAY. IMPORTANT MESSAGE FROM MEDICARE PROVIDED AND EXPLAINED. [facility] IN[facility] TO CONTACT MED 2 NURSE WITH ROOM NUMBER WHEN READY TO ACCEPT PT AND NURSE REPORT. Chuy Gonzales, CASE MANAGEMENT DCP- Discharge Planning Updated by [id number]: Chuy Gonzales on 02/19/19 10:[address] Patient Name: CARLENE ALLEN Encounter No: [id number] : 1940 Primary Insurance: [facility] MEDICARE SOLUTIONS Anticipated DC Date: 02-20-2019 Planned Disposition: Home with Home Health External Planned Provider: [facility] DCP follow-up note: CM REVIEWED CHART AND THERAPY NOTES, MET WITH PT IN ROOM, DISCUSSED THERAPY RESULTS, AVAILABILITY OF REHAB SERVICES, LOCATIONS AND PROVIDERS. PT DECLINES REHAB PLACEMENT. PT STATES HE WILL GO HOME AND WILL ACCEPT HOME HEALTH FOR PHYSICAL THERAPY. PT STATES HE IS STONG ENOUGH TO GO HOME DESPITE WHAT HIS SAYS. CM GAVE PROVIDER LISTING FOR HOME HEALTH, PT CHOICE SIGNED FOR [facility] OR NO PREFERENCE ON PROVIDER IF [facility] IS NOT ABLE TO ACCEPT. PT PLANS TO DISCHARGE HOME WITH SPOUSE, STATES HIS WILL TRANSPORT HOME AT DISCHARGE. PT DECLINES INPATIENT REHAB, WILL ACCEPT HOME HEALTH FOR PHYSICAL THERAPY. CM TO [facility]ANGE [facility] WITH PHYSICIAN AGREEMENT AND ORDERS. Chuy Gonzales CASE MANAGEMENT DCP- Discharge Planning Updated by [id number]: Chuy Gonzales on 02/18/19 11:[address] Patient Name: CARLENE ALLEN Encounter No: [id number] : 1940 Primary Insurance: [facility] MEDICARE SOLUTIONS Anticipated DC Date: Planned Disposition: Home DCP follow-up note: CM MET WITH PT AND SPOUSE IN ROOM TO DISCUSS DISCHARGE NEEDS AND PLANNING. CARLENE ALLEN provided verbal consent to discuss current and ongoing needs with/in the presence of: HIS OF OVER 50 YEARS. CM DISCUSSED AVAILABILITY OF HOME HEALTH, REHAB SERVICES AND MEDICAL EQUIPMENT. PT DENIES DISCHARGE NEEDS. SPOUSE TO TRANSPORT HOME AT DISCHARGE. IMPORTANT MESSAGE FROM MEDICARE PROVIDED AND EXPLAINED. PT'S SPOUSE REPORTS PT IS WEAK AND NEEDS SOME THERAPY SHE THINKS SHE IS GOING TO HAVE TO LIFT HIM OUT OF BED AT HOME AND IS NOT ABLE TO DO THIS. CM DISCUSSED THERAPY OPTIONS, LOCATIONS AND PROVIDERS WELL NEED FOR INSURANCE AUTHORIZATION FOR SERVICES. PT IS WILLING FOR THERAPY EVALUATIONS AND SERVICES WHILE HERE AT HOSPITAL. CM NOTIFIED DANDY PLUNKETT, OBTAINED ORDERS FOR PHYSICAL AND OCCUPATIONAL THERAPY EVALUATIONS. CM TO FOLLOW AND ASSIST NEEDED. PT WANTS TO RETURN HOME WITH SPOUSE. PT'S SPOUSE THINKS PT IS WEAK AND MAY NEED THERAPY SERVICES PRIOR TO OR AFTER RETURNING HOME. CM WAITING PHYSICAL AND OCCUPATIONAL THERAPY EVALUATIONS. SHONDA Nichols MANAGEMENT DCP- Discharge Planning Updated by [id number]: Jodee Hernandez on 02/15/19 4:[address] Patient Name: CARLENE ALLEN Admission Status: ER Accout number: [id number] Admission Date: 02-13-2019 : 1940 Admission Diagnosis:PNEUMONIA, UNSPECIFIED ORGANISM Attending: JENNIFER VALDEZ Current LOS: 2 Anticipated DC Date: Planned Disposition: Home Primary Insurance: [facility] MEDICARE SOLUTIONS Discharge Planning Comments: CM met with patient at bedside after explaining CM role and obtaining verbal consent. Patient lives at home with his Mariama and plans to return there upon discharge. Patient feels this would be a safe discharge. CM discussed availability / needs of home health and medical equipment. Patient denies any discharge needs at this time. Patient states he will have his drive him home upon discharge. CM will continue to follow and assist as needed with discharge planning / needs. Principal Law Clerk: Jodee Hernandez HANSA - Discharge Planning Initial Assessment Updated by [id number]: Jodee Hernandez on 02/15/19 5:26 pm * Is the patient Alert and Oriented? Yes * How many steps to enter\exit or inside your home? * PCP P[facility] * Pharmacy [facility] * Preadmission Environment Home with Family * ADLs Independent * Other Equipment GLUCOMETER, B/P CUFF, WALKER, CANE, ELECTRIC SCOTTER * List name and contact numbers for known caregivers / representatives who currently or will assist patient after discharge: MARIAMA ALLEN - SPOUSE- [phone] * Verbal permission to speak to the caregivers and representatives has been obtained from the patient. Yes * Community resources currently utilized None * Additional services required to return to the preadmission environment? No * Can the patient safely return to the preadmission environment? Yes * Has this patient been hospitalized within the prior 30 days at any hospital? No Coverage Notice Reviewer: [id number] Gonzales Notice Issued Date-Time: 02/18/2019 11:50 Notice Type: IM Discharge Notice Notice Delivered To: Patient Relationship to Patient: Systems Operator Name: Delivery Method: HAND - Hand Delivered Tana Days: Prior Verbal Notification: Recipient Understood Notice: Yes Recipient Signature: Yes Med Rec Note Co-signed by Attending: Coverage Notice Comment: Reviewer: [email or web address] Gonzales Notice Issued Date-Time: 02/19/2019 9:05 Notice Type: Patient Choice Letter Notice Delivered To: Patient Relationship to Patient: Systems Operator Name: Delivery Method: HAND - Hand Delivered Tana Days: Prior Verbal Notification: Recipient Understood Notice: Yes Recipient Signature: Yes Med Rec Note Co-signed by Attending: Coverage Notice Comment: [facility]; NO PREFERENCE ON HOME HEALTH PROVIDER #2 Last DP export: 02/19/19 10:34 a Patient Name: CARLENE ALLEN Page 53068 at 1303 All edits/amendments must be made on the electronic document DICTATION DATE: 02/25/19 1302 PAINT AND TABLE EDGER: CAMRON 02/25/19 1302 RPT#: [id number] DC DATE: STATUS: ADM IN [facility] [address] [place] [address] END OF REPORT
[2019-02-25 13:09] VITALS: BP 92/60
--- NOTE | 2019-02-25 13:53 | NUR ---
I have reviewed this patient and I concur with the Shift Assessment completed by the Licensed Practical Nurse today this shift.
--- NOTE | 2019-02-25 14:03 | NUR ---
Rehab Note- Received VM this AM from Allyson Nelson with [facility] with approval Auth #[id number] for 7 days, f/u clinical reviewer will be Enedina Watters, phone #[phone], fax#[phone]. Spoke with MORGAN Zafar. Will accept when medically stable and ready for discharge from the acute hospital. THank you for this referral! Julián Villasenor RN Clinical Liaison, [facility] Rehab
--- NOTE | 2019-02-25 16:19 | NUR ---
IP NEEDLE DCD AND IP FLUSHED. PT DISCHARGED FROM HOSPITAL. TAKEN TO REHAB UNIT PER WHEEL CHAIR
== END 2019-02-25 16:21 | DRG 981 ==
LOC: D.ER 13:30 → D.ICU 17:37 → D.MS 17:37 → D.ICU 02-14 13:14 → D.M2 02-16 13:29
PROVIDERS: Emergency Medicine; Internal Medicine Cardiovascular Disease; Internal Medicine Nephrology; Internal Medicine Pulmonary Disease; ADMIT Emergency Medicine; ATTEND Emergency Medicine
PROC: 02703ZZ Dilation of Coronary Artery, One Artery, Percutaneous Approach (ICD-10-PCS; 2019-02-18)
PROC: 4A023N7 Measurement of Cardiac Sampling and Pressure, Left Heart, Percutaneous Approach (ICD-10-PCS; 2019-02-18)
PROC: B2121ZZ Fluoroscopy of Single Coronary Artery Bypass Graft using Low Osmolar Contrast (ICD-10-PCS; 2019-02-18)
PROC: B2111ZZ Fluoroscopy of Multiple Coronary Arteries using Low Osmolar Contrast (ICD-10-PCS; 2019-02-18)
PROC: B3101ZZ Fluoroscopy of Thoracic Aorta using Low Osmolar Contrast (ICD-10-PCS; 2019-02-18)
PROC: 027034Z Dilation of Coronary Artery, One Artery with Drug-eluting Intraluminal Device, Percutaneous Approach (ICD-10-PCS; principal; 2019-02-18 08:30)
PROC: 02C03ZZ Extirpation of Matter from Coronary Artery, One Artery, Percutaneous Approach (ICD-10-PCS; 2019-02-18 08:30)
DX: J18.9 Pneumonia, unspecified organism (principal); I21.4 Non-ST elevation (NSTEMI) myocardial infarction; J96.01 Acute respiratory failure with hypoxia; I50.23 Acute on chronic systolic (congestive) heart failure; A41.9 Sepsis, unspecified organism; G61.81 Chronic inflammatory demyelinating polyneuritis; N17.9 Acute kidney failure, unspecified; I25.110 Atherosclerotic heart disease of native coronary artery with unstable angina pectoris; I35.0 Nonrheumatic aortic (valve) stenosis; E11.65 Type 2 diabetes mellitus with hyperglycemia; G40.909 Epilepsy, unspecified, not intractable, without status epilepticus; K21.9 Gastro-esophageal reflux disease without esophagitis; E03.9 Hypothyroidism, unspecified; D70.9 Neutropenia, unspecified; I11.0 Hypertensive heart disease with heart failure; E78.5 Hyperlipidemia, unspecified; E11.40 Type 2 diabetes mellitus with diabetic neuropathy, unspecified; Z95.0 Presence of cardiac pacemaker; Z85.46 Personal history of malignant neoplasm of prostate; Z86.73 Personal history of transient ischemic attack (TIA), and cerebral infarction without residual deficits

== ENCOUNTER 2019-02-25 15:15 | Inpatient (IN) | payer MEDICARE ==
[~2019-02-25] VITALS: Ht 182.9 cm; Wt 81.6 kg
[~2019-02-25 15:15] MED LIST changes: +ASPIRIN325 MG PO; +AZASAN100 MG PO; +FERROUS SULFAT325 MG PO; +FLUTICASONE PRO16 GM NASAL; +GLUCOPHAGE1000 MG PO; +JANUVIA50 MG PO; +LASIX40 MG PO; +LOPRESSOR25 MG PO; +MUCINEX DM ER1 EAC1 PO; +MUCINEX600 MG PO; +NITRO-DUR0.2 MG TRANSDERM; +OMEGA-3100 MG; +PLAVIX75 MG PO; +SINGULAIR10 MG PO; +TOPROL XL100 MG PO
[2019-02-25 17:10] VITALS: BP 98/68; BMI 24.4
--- NOTE | 2019-02-25 19:07 | NUR ---
GREETED PATIENT AND INTRODUCED MYSELF HIS NURSE. PATIENT IS LAYING IN BED WATCHING TV. O2 AT 2L VIA NC. RESPIRATIONS EVEN. NO S/S OF DISTRESS. DENIES ANY PAIN AT THIS TIME. DENIES ANY FURTHER NEEDS AT THIS TIME. CALL LIGHT IN REACH.
[2019-02-25 20:37] VITALS: BP 98/68
--- NOTE | 2019-02-26 00:25 | NUR ---
PT. RESTING QUIETLY WITH EYES CLOSED LAYING IN SUPINE POSITION. RESPIRATIONS EVEN. NO S/S OF DISTRESS. SR UP X 2. BED IN LOWEST POSITION. CALL LIGHT IN REACH.
[2019-02-26 01:04] LABS: APPEARANCE CLEAR (CLEAR); BILIRUBIN NEGATIVE (NEGATIVE); COLOR YELLOW (YELLOW); GLUCOSE NEGATIVE (NEGATIVE); KETONE NEGATIVE (NEGATIVE); NITRITE NEGATIVE (NEGATIVE); PROTEIN 2+ mg/dL (NEGATIVE); UROBILINOGEN NORMAL (NORMAL)
[2019-02-26 01:06] LABS: BACTERIA NONE SEEN /hpf (NEGATIVE); EPITHELIAL CELLS 0-5 /hpf (0-5); RED CELLS - URINE NONE SEEN /hpf (0-5); WHITE CELLS - URINE 0-5 /hpf (NEGATIVE)
[2019-02-26 08:00] VITALS: BP 104/66
--- NOTE | 2019-02-26 08:00 | NUR ---
PT REFUSING TO HAVE LAB DRAWN. HIS PORT WAS DE-ACCESSED YESTERDAY BEFORE HE WAS MOVED TO REHAB. THERE IS NO REASON TO ACCESS PORT HE IS NOT GETTING ANY IV MEDS. HE STATED HE WILL ONLY ALLOW IV DRAWS VIA HIS PORT. HE ALSO REFUSED TO ALLOW F/C TO BE DC'D. HE STATES HE IS INCONT OF URINE DUE TO PROSTATE REMOVAL AND IT IS JUST MORE CONVIENENT FOR HIM TO HAVE F/C IN PLACE. CARDIOPULMONARY TECHNICIAN AND EEG TECH NOTIFIED.
--- NOTE | 2019-02-26 14:04 | NUR ---
PATIENT ADMITTED TO REHAB FROM ACUTE FLOOR. PCP IS DR. JONES AND AT [facility] HE WOULD LIKE [facility]. DME AT HOME IS A CANE, WALKER AND ELECTRIC SCOOTER. AT DISCHARGE HE WILL NEED A [address] FOLLOW UP WITH DR. LOYD. WILL CONTINUE TO FOLLOW WITH PATIENT.
[2019-02-26 14:46] VITALS: Ht 182.9 cm; Wt 81.6 kg
--- NOTE | 2019-02-26 17:43 | NUR ---
PT RESTING IN BED WITH EYES OPEN CALL LIGHT IN REACH NO PROBLEMW WILL MONITER
--- NOTE | 2019-02-26 19:13 | NUR ---
GREETED PATIENT AND INTRODUCED MYSELF HIS NURSE. PATIENT IS LAYING IN BED RESTING. RESPIRATIONS EVEN. NO S/S OF DISTRESS. O2 AT 2L IN USE VIA NC. STATES THAT PAIN IS 2 OUT OF 10 IN CHEST AREA. CALL LIGHT IN REACH.
[2019-02-26 20:56] VITALS: BP 78/47
[2019-02-27 08:00] VITALS: BP 120/80
--- NOTE | 2019-02-27 08:00 | NUR ---
PATIENT IS ALERT/ORIENT. CALL LIGHT WITHIN REACH. VOICES NO NEEDS AT THIS TIME. WILL CONTINUE WITH PLAN OF CARE
--- NOTE | 2019-02-27 10:17 | NUR ---
PATIENTS IN ROOM, VISITING. PATIENT REAMAINS IN BED. WATCHING T.V.
--- NOTE | 2019-02-27 19:16 | NUR ---
GREETED PATIENT AND INTRODUCED MYSELF. PATIENT IS LAYING IN BED ON RIGHT SIDE. O2 IN USE AT 2L VIA NC. DENIES ANY PAIN AT THIS TIME. RESPIRATIONS EVEN. NO S/S OF DISTRESS. CALL LIGHT IN REACH.
[2019-02-27 20:45] VITALS: BP 90/54
[2019-02-28 07:32] VITALS: BP 106/78
--- NOTE | 2019-02-28 08:20 | NUR ---
PATIENT IS ALERT/ORIENT. SITTING UP IN BED TO EAT BREAKFAST. CALL LIGHT WITHIN REACH. VOICES NO NEEDS AT THIS TIME. WILL CONTINUE WITH PLAN OF CARE
--- NOTE | 2019-02-28 11:30 | NUR ---
CARE TEAM MEETING: PATIENT IS NEW TO UNIT AND HAS BEEN REFUSING TO PARTICIPAITE IN THERAPY. WILL MEET WITH PATIENT AND WILL DISCUSS HIS OPTIONS WITH HIM. WILL CONTINUE TO FOLLOW WITH PATIENT
--- NOTE | 2019-02-28 15:04 | NUR ---
BARR CATH REMOVED WITHOUT DIFFICULTY. PRN TYLENOL GIVEN PER PATIENT REQUEST FOR LEFT SIDED PAIN/DISC
--- NOTE | 2019-02-28 16:09 | NUR ---
PATIENT ABLE TO URINATE AFTER BARR CATH REMOVED. LARGE AMOUNT OF URINE. PATIENT IS INCONT OF URINE. WEARS BRIEF
--- NOTE | 2019-02-28 17:42 | NUR ---
PATIENT STATES HE HAS NOT HAD A BOWEL MOVEMENT FOR THREE DAYS. NEW ORDER FOR MIRALAX AND COLACE. PATIENT AT THIS TIME STATED HE WANTED TO JUST TRY PRUNE JUICE FIRST
--- NOTE | 2019-02-28 20:00 | NUR ---
PATIENT RECEIVED SITTING UP IN BED WATCHING TV. ASSESSMENT & VITAL SIGNS DONE. NO C/O PAIN OR DISTRESS. BED LOW. CALL LIGHT WITHIN REACH. WILL CONTINUE TO MONITOR.
--- NOTE | 2019-02-28 21:00 | NUR ---
PATIENT INCONTINENT OF URINE, CHANGED BRIEF. CALL LIGHT WITHIN REACH.WILL CONTINUE TO MONITOR.
[2019-02-28 21:11] VITALS: BP 82/44
--- NOTE | 2019-03-01 02:15 | NUR ---
PATIENT USED CALL LIGHT FOR ASSSIST USING URINAL. PATIENT HAD 50 CC OF DARK YELLOW COLOR URINE. PATIENT MADE COMFORTABLE. CALL LIGHT WITHIN REACH. WILL CONTINUE TO MONITOR.
--- NOTE | 2019-03-01 02:57 | NUR ---
PATIENT EYES CLOSED. RESPIRATIONS 18 & EVEN. BED LOW. CALL LGITH WITHIN REACH. WILL CONTINUE TO MONITOR.
--- NOTE | 2019-03-01 04:30 | NUR ---
I have reviewed this patient and I concur with the Shift Assessment completed by the Licensed Practical Nurse today this shift.
[2019-03-01 08:55] VITALS: BP 110/73
--- NOTE | 2019-03-01 10:16 | NUR ---
SITTING IN WC IN ROOM NODDING OFF. STATES HE IS SLEEPY BUT HAS NO C/O. CALL LIGHT IN REACH
--- NOTE | 2019-03-01 14:23 | NUR ---
Nutrition Follow Up: Patient states he does not habe an appetite. He said he has to force himself to eat. He denied N/V/D/C. He stated that he had a BM 3 days ago and drinks prune juice to prevent constipation. Patient states he drinks 1 to 2 glucernas per day. PO intake: 53% x 9 meals Labs: Na- 133(L), Chloride-96(L), BUN-43(H), Cr-1.4(H) Meds: Lasix, MVI, Lactobacillus acidophilus, fish oil, vit D, protonix, ferrous sulfate Continue current diet with glucerna. Clinical dietitian following
[2019-03-01 22:00] VITALS: BP 102/64
--- NOTE | 2019-03-01 22:24 | NUR ---
PT IS RESTING QUIETLY IN BED WITH EYES CLOSED. RESPS ARE EVEN AND UNLABORED. NO ACUTE DISTRESS NOTED.
--- NOTE | 2019-03-02 02:58 | NUR ---
I have reviewed this patient and I concur with the Shift Assessment completed by the Licensed Practical Nurse today this shift.
--- NOTE | 2019-03-02 04:38 | NUR ---
RESTING IN BED WITH EYES CLOSED.
[2019-03-02 08:00] VITALS: BP 103/72
--- NOTE | 2019-03-02 11:56 | NUR ---
LAYING IN BED RESTING QUIETLY. JUST GOT OFF TOILET WITH MARIPOSA ASST. HAS MED BM. WEARS OXYGEN 3L NC. C/O WEAKNESS AND INCREASED SOB WITH EXERTION. SATS STAY IN MID TO HIGH 90'S. VISITING RIGHT NOW. CALL LIGHT IN REACH
--- NOTE | 2019-03-02 18:18 | NUR ---
SITTING IN RECLINER IN ROOM. DTR VISITED TODAY FOR LONG TIME. PT STILL DENIES NEEDS AND STATES PAIN CONTROLLED ON CURRENT PAIN MEDS.
--- NOTE | 2019-03-02 19:10 | NUR ---
PT IS RESTING IN BED WITH EYES OPEN. ALERT AND ORIENTED X 3. PT STATES HE HAS HAD A BETTER DAY THAN USUAL, BUT HIS WHOLE LEFT SIDE IS STILL HURTING. PT INC. OF URINE. JJ CARE AND BRIEF CHANGE DONE. DRESSING TO LEFT GROIN PUNCTURE SITE IS CDI. 3+ EDEMA NOTED TO BLE. FEET ELEVATED UP ON PILLOWS. SR'S ARE UP X 2 IN BED. CALL LIGHT AND BEDSIDE TABLE ARE WITHIN EASY REACH.
[2019-03-02 21:03] VITALS: BP 105/71
--- NOTE | 2019-03-02 21:18 | NUR ---
PT IS RESTING QUIETLY IN BED WITH EYES CLOSED. RESPS ARE EVEN AND UNLABORED. NO ACUTE DISTRESS NOTED.
--- NOTE | 2019-03-02 23:29 | NUR ---
QUIET HOURS. PT LYING IN BED HOB 15 DEGREES EYES CLOSED RESTING QUIETLY. CONTINUES ON 1.5L O2 VIA NC. NO SIGNS OF DISTRESS NOTED. WILL CONTINUE TO MONITOR
--- NOTE | 2019-03-03 02:50 | NUR ---
I have reviewed this patient and I concur with the Shift Assessment completed by the Licensed Practical Nurse today this shift.
--- NOTE | 2019-03-03 06:02 | NUR ---
PT RESTING IN BED WITH EYES CLOSED. AWOKE EASILY TO VERBAL STIMULI. TOLERATED AM MED WITHOUT DIFFICULTY. NO NEEDS VOICED.
[2019-03-03 08:00] VITALS: BP 110/71
--- NOTE | 2019-03-03 10:26 | NUR ---
SITTING UP IN BED WATCHING TV AND RESTING QUIETLY. FAMILY VISITING. STILL REFUSING LAB DRAWS.
--- NOTE | 2019-03-03 19:30 | NUR ---
PT RESTING IN BED WITH EYES OPEN. ALERT AND ORIENTED X 3. DENIES ACUTE DISCOMFORT AT THIS TIME, BUT STATES HE WANTS XANAX, RESTORIL AND TYLENOL WITH HIS NIGHTTIME MEDS TODAY. 02 IS ON @ 2.5 LPM PER NC. NO SOB NOTED. 3+ EMEMA NOTED IN BLE. FEET ELEVATED UP ON PILLOWS TO PROMOTE REDUCTION. SR'S ARE UP X 3 IN BED. CALL LIGHT AND BEDSIDE TABLE ARE WITHIN EASY REACH.
--- NOTE | 2019-03-03 21:10 | NUR ---
PT IS RESTING QUIETLY IN BED WITH EYES CLOSED. RESPS ARE EVEN AND UNLABORED. NO ACUTE DISTRESS NOTED.
--- NOTE | 2019-03-03 23:46 | NUR ---
QUIET HOURS. PT LYING IN BED SUPINE EYES CLOSED RESTING QUIETLY. NO SIGNS OF DISTRESS NOTED.
--- NOTE | 2019-03-04 01:25 | NUR ---
I have reviewed this patient and I concur with the Shift Assessment completed by the Licensed Practical Nurse today this shift.
--- NOTE | 2019-03-04 03:28 | NUR ---
RESTING IN BED WITH EYES CLOSED.
--- NOTE | 2019-03-04 05:45 | NUR ---
PT AWAKE WATCHING TV. NO NEEDS VOICED. TOLERATED AM MED WITHOUT DIFFICULTY.
[2019-03-04 08:00] VITALS: BP 113/83
--- NOTE | 2019-03-04 08:25 | NUR ---
WORKING WITH Analia
--- NOTE | 2019-03-04 13:20 | NUR ---
CLINICAL UPDATES FAXED TO AC DALY , AT [facility], FOR EXTENSION OF STAY. FAXED TO , AUTH. # [id number] WITH CONFORMAION RECIEVED
--- NOTE | 2019-03-04 19:32 | NUR ---
PT IS RESTINGIN BED WATCHING TV. ALERT AND ORIENTED X 3. NO NEEDS VOICED. O2 IS ON @ 2.5LPM PER NC. NO SOB NOTED. 3+ EDEMA NOTED TO BLE. LEGS ELEVATED UP ON A PILLOW TO PROMOTE REDUCTION. SR'S ARE UP X 2 IN BED. CALL LIGHT AND BEDSIDE TABLE ARE WITHIN EASY REACH.
[2019-03-04 20:44] VITALS: BP 80/56
--- NOTE | 2019-03-04 22:06 | NUR ---
RESTING QUIETLY IN BED WITH EYES CLOSED. NO DISTRES NOTED.
--- NOTE | 2019-03-04 23:56 | NUR ---
RESTING QUIETLY IN BED WITH EYES CLOSED.
--- NOTE | 2019-03-05 01:13 | NUR ---
I have reviewed this patient and I concur with the Shift Assessment completed by the Licensed Practical Nurse today this shift.
--- NOTE | 2019-03-05 04:55 | NUR ---
RESTING IN BED WITH EYES CLOSED.
[2019-03-05 08:00] VITALS: BP 102/68
[2019-03-05 09:21] LABS: BASOPHILS 0.7 % (0-2); EOSINOPHILS 2.7 % (0-7); HEMATOCRIT 27.8 % (42.0-54.0); HEMOGLOBIN 9.1 g/dL (13.5-17.5); IMMATURE GRANULOCYTES 0.4 % (0-5); LYMPHOCYTES 4.8 % (15-50); MCH 35.7 pg (26.0-34.0); MCHC 32.7 g/dL (31.0-37.0); MEAN PLATELET VOLUME 10.3 fL (7.4-10.4); NEUTROPHILS 85.4 % (40-80); PLATELET COUNT 197 10x3/uL (130-400); RBC 2.55 10x6/uL (4.20-6.10); RDW 20.1 % (11.5-14.5); WBC 8.2 10x3/uL (4.8-10.8)
[2019-03-05 09:42] LABS: CALCIUM 9.2 mg/dL (8.5-10.1); CARBON DIOXIDE 26.7 mmol/L (21.0-32.0); CREATININE - SERUM 1.4 mg/dL (0.6-1.3); POTASSIUM - SERUM 4.7 mmol/L (3.5-5.1)
--- NOTE | 2019-03-05 18:37 | NUR ---
I have reviewed this patient and I concur with the Shift Assessment completed by the Licensed Practical Nurse today this shift.
--- NOTE | 2019-03-05 19:23 | NUR ---
GREETED PATIENT AND INTRODUCED MYSELF. PATIENT IS LAYING IN BED ON RIGHT SIDE. O2 AT 2L IN USE VIA NC. RESPIRATIONS EVEN. NO S/S OF DISTRESS. DENIES ANY NEEDS AT THIS TIME. CALL LIGHT IN REACH.
--- NOTE | 2019-03-06 00:43 | NUR ---
PT. AWAKE AND SITTING UP IN BED. DENIES ANY NEEDS AT THIS TIME. O2 AT 2.5 L IN USE VIA NC. CALL LIGHT IN REACH.
--- NOTE | 2019-03-06 05:44 | NUR ---
PT. AWAKE AND DRINKING COFFEE. O2 AT 2.5 VIA NC. RESPIRATIONS EVEN. NO S/S OF DISTRESS. CALL LIGHT IN REACH.
--- NOTE | 2019-03-06 08:00 | NUR ---
PT RESTING IN BED WITH EYES OPEN CALL LIGHT IN REACH NO PROBLEMS WILL MONITER
[2019-03-06 08:04] VITALS: BP 108/75
--- NOTE | 2019-03-06 16:04 | NUR ---
Nutrition Follow-up: Diet: Diabetic + glucerna with trays PO intake: 100% x 3 meals yesterday Pt's reports pt with poor appetite. Labs noted: Glu 264H. Meds noted: SSI, metformin, Juanvia, lasix Skin assessment reviewed. Last BM 03/05/19. Last Wt: 180# (02/26/19) Continue current nutrition regimen. RD Following.
--- NOTE | 2019-03-06 18:07 | NUR ---
PT RESTING IN BED WITH EYES OPEN EATING DINNER CALL LIGHT IN FELICIA PARRA MONITER
--- NOTE | 2019-03-06 19:35 | NUR ---
PT SITTING UP IN BED WATCHING TV.CL IN REACH. DENIES NEEDS AT THIS TIME. BED IN LOW SIDE RAILS X2. RESP EVEN AND UNLABORED. BOWEL ACTIVE X4. A/O X4. WCTM
[2019-03-06 22:00] VITALS: BP 104/65
--- NOTE | 2019-03-07 00:18 | NUR ---
I have reviewed this patient and I concur with the Shift Assessment completed by the Licensed Practical Nurse today this shift.
--- NOTE | 2019-03-07 03:10 | NUR ---
CHANGED PT LINENS. DENIES NEEDS. CL IN REACH. WCTM
--- NOTE | 2019-03-07 05:59 | NUR ---
PT SITTING UP IN BED. CL IN REACH. DENIES NEEDS. WCTM
[2019-03-07 08:00] VITALS: BP 106/74
--- NOTE | 2019-03-07 11:00 | NUR ---
I have reviewed this patient and I concur with the Shift Assessment completed by the Licensed Practical Nurse today this shift.
--- NOTE | 2019-03-07 13:43 | RHP ---
PATIENT: CARLENE ALLEN III MEDICAL RECORD: [id number] ACCOUNT: [id number] LOCATION:[id number] : 44 ADMISSION DATE: 02/25/19 REHABILITATION HISTORY AND PHYSICAL EXAMINATION POST ADMISSION PHYSICIAN EXAMINATION POST ADMISSION PHYSICAL EXAMINATION AND HISTORY AND PHYSICAL DATE OF ADMISSION: 02/25/2019 ADMITTING DIAGNOSIS: Under neurological disorder, chronic demyelinating polyneuropathy. HISTORY OF PRESENT ILLNESS: The patient presented to the ED on February 13, his PCP is Dr. Izquierdo, who presented with generalized weakness and intermittent episodes of diarrhea after being placed on metformin. He has a history of chronic demyelinating polyneuropathy and was recently placed on Imuran by his neurologist at [facility] 4 weeks ago. Symptoms started at that time, progressively gotten worse. He reports fatigue, weight loss, intermittent chest pain accompanied by shortness of breath, nausea, and diaphoresis. He was noted to be neutropenic with a white count of 1.5. His hemoglobin and hematocrit were 8.2 and 23.9. The patient had an elevated troponin. He kept having intermittent chest pain with elevation of troponin. Cardiology was consulted. They felt like he had had a qrt-EI-dwazxtl elevation NH, multifactorial in etiology secondary to anemia and volume overload with respiratory distress and demand ischemia. He was transferred to the ICU. Pulmonary was consulted. He had no type of embolus. He did have some right hilar lymphedema and large bilateral pleural effusions. Pulmonary placed him on IV antibiotics, also Lasix, neb treatments, and heme/onc was also consulted to see him for leukopenia and anemia. He was given 2 units of packed red blood cells. Started on a filgrastim and placed on neutropenic precautions. He was transferred to the floor on February 17. The patient continued to experience an unstable angina and was taken to the photo lab manager on February 18. He had successful percutaneous transluminal coronary angioplasty and stent placed, laser atherectomy of the vein graft to his right coronary artery. Post heart cath, he clinically improved. His blood pressures have been better. He lives at home with his spouse. Uses a cane or walker and an electric scooter for long distances. Currently, he has had prolonged immobility, progressive generalized weakness, especially in his lower extremities. It is affecting his tolerance for PT. He is very fatigued. He has limited flexion and extension of his lower extremities, poor balance. He has impulsive actions. He is an increased fall risk. He is mod-to-max assist for ADLs, mod-to-max assist for sit to stand and bed to chair. He and his are motivated to regain his previous level of functioning and get back to where he was. Comorbidities in this patient include hypoxic respiratory failure, mild mitral regurg, unstable angina, neutropenia, diabetes, hypertension, debility, allergic rhinitis, status post valvular heart disease in the past. PAST MEDICAL HISTORY: Significant for TIA, neuropathy, seizures, chronic inflammatory demyelinating disorder, diabetes, thyroid problems, hypertension, pacemaker, stents and angioplasty, prostate cancer, aortic valve problems, coronary artery disease, acid reflux, chronic back pain, prostate cancer, pneumonia, history of tobacco use, kidney stones, and urinary incontinence. PAST SURGICAL HISTORY: Includes tonsillectomy, adenoidectomy, hemorrhoidectomy, HISTORY AND PHYSICAL [id number] [facility] II 2 back surgeries. He has had prostatectomy. He has had aortic valve replacement, pacemaker, and PTCA with stents. ALLERGIES: STATINS. CURRENT MEDICATIONS: Include nitroglycerin transdermal 0.2 mg daily. He is on multivitamin daily. He is on Floranex daily. He is on Lasix 40 mg daily. He is on omega-3 one cap daily, Plavix 75 mg daily, vitamin D 1000 units daily, aspirin 325 mg daily, Protonix 40 mg daily, Tylenol 650 every 4 hours p.r.n., Restoril 15 mg at bedtime p.r.n., Singulair 10 mg at bedtime, metoprolol 12.5 mg b.i.d., guaifenesin 600 mg b.i.d., ferrous sulfate 325 b.i.d., ascorbic acid 500 mg b.i.d., Januvia 50 mg daily, and metformin 1000 mg b.i.d. with meals. HABITS: Does have a distant history of tobacco use. FAMILY HISTORY: Noncontributory. SOCIAL HISTORY: The patient hopes to return back home and get back to his prior level of functioning. REVIEW OF SYSTEMS: GENERAL: Does complain of weakness and fatigue. HEENT: Denies cold, cough, or congestion. CARDIOVASCULAR: Denies chest pain. PHYSICAL EXAMINATION: VITAL SIGNS: Stable, afebrile. GENERAL: A well-developed gentleman, in no acute distress upon exam. HEENT: Normocephalic and atraumatic. Mucosa moist. NECK: Supple. No lymphadenopathy. LUNGS: Clear at this time. No wheezing or rales. HEART: Regular rate and rhythm. No murmurs, rubs or gallops. ABDOMEN: Soft and nondistended. Positive bowel sounds times 4. EXTREMITIES: No clubbing, cyanosis or edema. NEUROLOGIC: He does have noted proximal muscle weakness. He does have decreased sensation in his extremities. ASSESSMENT: This is a 78-year-old gentleman admitted to the rehab with a working diagnosis of debility secondary to chronic inflammatory demyelinating polyneuropathy. The patient has potential to make improvement. We will institute the following multidisciplinary therapies including, but not limited to, physical, occupational, respiratory, speech, nutritional services, prosthetics, and orthotics. Given his complex medical condition and risks for more complications, rehabilitation services cannot be provided at a lower level of care such as a skilled nurse facility. PLAN: 1. Admit to [facility] for an inpatient therapy to include the following disciplines; A. Physical therapy to improve gait, all transfer skills, and bed mobility to modified independent level. B. Occupational therapy to improve activities of daily living. C. Case management to assist with discharge planning and placement options. D. Nutrition to assist with nutritional needs. E. Rehabilitation nursing to assist in monitoring the patient's underlying HISTORY AND PHYSICAL [id number] CARLENE ALLEN [facility] II medical conditions and to assist with any type of bowel or bladder management. 2. The patient's current medications and medical care will be continued. 3. We are going to check labs as needed. 4. I will see again in the a.m. TRANSINT:[id number] Voice Confirmation ID: [id number] DOCUMENT ID: [id number] LISSET notes whether there has been none or any medical/functional change since admission: - No change since prescreen. LISSET attests patient continues to be appropriate for IRF: - Continues to be appropriate. ANNA MARIE VALDEZ MD at 1343 CC: [id number] DICTATION DATE: 02/26/19 0826 PETROLEUM ANALYST: 02/26/19 1109 ADM IN [place] [id number] [place] [address]
--- NOTE | 2019-03-07 14:14 | NUR ---
SPOKE WITH SPOUSE AFTER VISITING DIFFERENT FACILITIES SHE HAS CHOSEN [facility]. A REFERRAL WILL BE FAXED PER HER REQUEST.WILL CONTINUE TO FOLLOW WITH PATIENT
--- NOTE | 2019-03-07 20:00 | NUR ---
PATIENT RECEIVED SITTING UP IN BED. ASSESSMENT & VITAL SIGNS DONE. PATIENT ANXIETY ELEVATED. PATIENT GIVEN XANAX PER ORDER. BED LOW. ALARM ON. CALL LIGHT & URINAL WITHIN REACH. WILL CONTINUE TO MONITOR.
[2019-03-07 21:16] VITALS: BP 95/70
--- NOTE | 2019-03-08 01:06 | NUR ---
PATIENT C/O INSOMNIA,TEMAZAPAM GIVEN. WILL CONTINUE TO MONITOR.
--- NOTE | 2019-03-08 02:28 | NUR ---
PATIENT EYES CLOSED. RESPIRATIONS 18 & EVEN. TEMAZAPAM EFFECTIVE FOR INSOMNIA. BED LOW. CALL LIGHT WITHIN REACH.
[2019-03-08 06:03] LABS: BASOPHILS 0.6 % (0-2); EOSINOPHILS 5.1 % (0-7); HEMATOCRIT 27.1 % (42.0-54.0); HEMOGLOBIN 8.8 g/dL (13.5-17.5); IMMATURE GRANULOCYTES 0.5 % (0-5); LYMPHOCYTES 7.4 % (15-50); MCH 35.1 pg (26.0-34.0); MCHC 32.5 g/dL (31.0-37.0); MEAN PLATELET VOLUME 10.4 fL (7.4-10.4); NEUTROPHILS 78.4 % (40-80); PLATELET COUNT 193 10x3/uL (130-400); RBC 2.51 10x6/uL (4.20-6.10); RDW 20.3 % (11.5-14.5); WBC 6.5 10x3/uL (4.8-10.8)
[2019-03-08 06:35] LABS: ANION GAP 19.7 mmol/L (8-16); CALCIUM 8.8 mg/dL (8.5-10.1); CARBON DIOXIDE 21.9 mmol/L (21.0-32.0); CREATININE - SERUM 1.5 mg/dL (0.6-1.3); POTASSIUM - SERUM 5.6 mmol/L (3.5-5.1)
[2019-03-08 08:00] VITALS: BP 107/74
--- NOTE | 2019-03-08 08:15 | NUR ---
PT SITTING UP IN BED EATING BREAKFAST, DENIES NEEDS. WCTM.
--- NOTE | 2019-03-08 09:51 | NUR ---
PT AM MEDS ADMINISTERED. PT DENIES NEEDS. WCTM.
--- NOTE | 2019-03-08 09:51 | NUR ---
NUTRITION F/U PT IN THERAPY. < 50% BREAKFAST EATEN. SUPPLEMENT UNOPENED. PT STARTED MEGACE THIS AM. WILL HOPEFULLY IMPROVE APPETITE. RD FOLLOWING
--- NOTE | 2019-03-08 17:28 | NUR ---
PT EATING DINNER, DENIES NEEDS. WCTM.
--- NOTE | 2019-03-08 19:47 | NUR ---
PT ASSISTED UP TO BATHROOM BY ENGINEER OPERATIONS AND MAINTENANCE. LARGE BM NOTED. PT WAS SOB, AND VERY WEAK UPON RETURN TO BED. MOD ASSIST REQUIRED TO TRANSFER INTO BED. UPDRAFT TREATMENT GIVEN BY RESP. THERAPIST. 4+ EDEMA NOTED TO BLE. FEET ELEVATED UP ON PILLOW. SR'S ARE UP X 2 IN BED. CALL LIGHT AND BEDSIDE TABLE ARE WITHIN EASY REACH.
[2019-03-08 19:48] VITALS: BP 91/66
--- NOTE | 2019-03-08 21:56 | NUR ---
PT IS RESTING QUIETLY IN BED WITH EYES CLOSED. NO ACUTE DISTRESS NOTED.
--- NOTE | 2019-03-09 | NUR ---
I have reviewed this patient and I concur with the Shift Assessment completed by the Licensed Practical Nurse today this shift.
--- NOTE | 2019-03-09 03:31 | NUR ---
PT LYING IN BED EYES CLOSED RESTING QUIETLY. CL IN REACH
--- NOTE | 2019-03-09 06:05 | NUR ---
PT IS RESTING IN BED WITH EYES OPEN. NO NEEDS VOICED. PT STATES HE FEELS MUCH BETTER THIS MORNING.
[2019-03-09 07:14] LABS: CALCIUM 9.4 mg/dL (8.5-10.1); CARBON DIOXIDE 23.6 mmol/L (21.0-32.0); CREATININE - SERUM 1.9 mg/dL (0.6-1.3); POTASSIUM - SERUM 5.6 mmol/L (3.5-5.1)
--- NOTE | 2019-03-09 07:30 | NUR ---
RESTING QUIETLY IN BED. HEAD OF BED UP AT ALMOST [address] AT 2LNC. RESP EFFORT NON LABORED. 4+ EDEMA NOTED TO BLE. HIS COLOR IS PALE AND DRY
[2019-03-09 08:18] VITALS: BP 102/72
--- NOTE | 2019-03-09 15:38 | NUR ---
INCONT OF URINE ALL THE TIME. NO SKIN BREAKDOWN NOTED IN JJ AREA. HE IS NOT EVEN TRYING TO USE HIS URINAL TODAY. APPEARS VERY TIRED.
--- NOTE | 2019-03-09 19:24 | NUR ---
PT RESTING IN BED WITH EYES OPEN. PT STATES HE DOES NOT FEEL GOOD, BUT HAS NO SPECIFIC COMPLAINTS. SUPPER TRAY STILL SITTING ON TABLE UNTOUCHED. PT STATES HE DOESNT WANT IT, BUT WAS OK WITH LEAVING IT FOR A WHILE IN CASE HE CHANGES HIS MIND. O2 IS ON @ 2LPM PER NC. NO SOB NOTED AT THIS TIME. 4+ EDEMA NOTED IN BLE. PT REFUSING TO HAVE A PILLOW UNDER HIS FEET. SR'S ARE UP X 2 IN BED. CALL LIGHT AND BEDSIDE TABLE ARE WITHIN EASY REACH.
[2019-03-09 19:45] VITALS: BP 105/61
--- NOTE | 2019-03-09 21:45 | NUR ---
RESTING IN BED WITH EYES CLOSED.
--- NOTE | 2019-03-09 23:21 | NUR ---
I have reviewed this patient and I concur with the Shift Assessment completed by the Licensed Practical Nurse today this shift.
--- NOTE | 2019-03-10 03:07 | NUR ---
PT ASSISTED TO THE BATHROOM WITH MAX ASSIST FOR TRANSFERS. MOD ASSIST FOR TOILETING, THEN ASSISTED BACK TO BED. NO FURTHER NEEDS VOICED.
--- NOTE | 2019-03-10 05:47 | NUR ---
PT RESTING IN BED WITH EYES OPEN. NO COMPLAINT VOICED. TOLERATED AM MED WITHOUT DIFFICULTY.
[2019-03-10 07:55] VITALS: BP 108/74
--- NOTE | 2019-03-10 07:59 | NUR ---
AWAKE, ALERT AND ORIENTED. BREAKFAST SERVED. NO C/O PAIN. CL IN REACH.
--- NOTE | 2019-03-10 10:45 | NUR ---
SPOKE TO DR VALDEZ ABOUT DECLINE IN PATIENT. SEEMS TO BE WEAKER AND INCREASED SOB WITH SHALLOW BREATHS. HAS 4+ EDEMA LE. WHISPERS TO TALK. DR VALDEZ HERE AND ASKED HIM TO SEE PATIENT WHILE HE IS HERE TO ADVICE AND FOR ANY NEW ORDERS NEEDED.
--- NOTE | 2019-03-10 11:12 | NUR ---
REFUSED SHOWER AND BED BATH. HAS INCREASED WEAKNESS AND SOB. CXR ORDRED AND LASIX INCREASED AND GIVEN. IS AT BS.
--- NOTE | 2019-03-10 13:20 | NUR ---
CXR RESULTS CALLED TO DR VALDEZ.
--- NOTE | 2019-03-10 14:03 | NUR ---
AT BS. PATIENT IS TOTAL WITH TRANSFERS TODAY. SAT IN CHAIR FOR A WHILE. PLACED BACK IN BED. CL IN REACH.
--- NOTE | 2019-03-10 16:09 | NUR ---
RESTING IN BED. STILL SHALLOW BREATHING AND SOB BUT, BREATHING SOME BETTER THAN THIS AM. INCREASED WEAKNESS AND DECREASED ENDURANCE. DR VALDEZ AND AWARE OF DIFFICULTIES TODAY. IS A TOTAL WITH TRANSFERS AT THIS TIME. CL IN REACH.
--- NOTE | 2019-03-10 17:45 | NUR ---
K+ 5.6. CALLED TO DR VALDEZ. MESSAGE LEFT.
--- NOTE | 2019-03-10 19:51 | NUR ---
PT RESTING IN BED WITH EYES OPEN. ALERT AND ORIENTED X 3. DENIES ACUTE DISCOMFORT AT THIS TIME. ONLY REQUESTED HIS OVERHEAD LIGHT BE SHUT OFF. O2 IS ON @ 2LPM PER NC. NO SOB NOTED AT THIS TIME. SR'S ARE UP X 2 IN BED. CALL LIGHT AND BEDSIDE TABLE ARE WITHIN EASY REACH.
[2019-03-10 20:51] VITALS: BP 101/52
--- NOTE | 2019-03-10 22:00 | NUR ---
RESTING QUIETLY IN BED WITH EYES CLOSED.
--- NOTE | 2019-03-11 00:49 | NUR ---
PT INC. OF A LARGE STICKY DARK BM AND URINE. TOTAL ASSIST REQUIRED FOR JJ CARE AND BED LINEN CHANGE WITH 2 NURSES. CALMOSEPTINE APPLIED TO JJ AREA.
--- NOTE | 2019-03-11 01:46 | NUR ---
I have reviewed this patient and I concur with the Shift Assessment completed by the Licensed Practical Nurse today this shift.
--- NOTE | 2019-03-11 03:49 | NUR ---
PT LYING IN BED SUPINE EYES CLOSED RESTING QUIETLY. CL IN REACH
--- NOTE | 2019-03-11 06:14 | NUR ---
PT INC. OF URINE. JJ CARE AND PAD CHANGE DONE. FSBS IS 196. PT NOT COVERED WITH SLIDING SCALE INSULIN DUE TO YESTERDAYS NURSE REPORTING HE DID NOT EAT WELL.
[2019-03-11 06:33] LABS: BASOPHILS 0.2 % (0-2); EOSINOPHILS 0.9 % (0-7); HEMATOCRIT 28.9 % (42.0-54.0); HEMOGLOBIN 9.2 g/dL (13.5-17.5); IMMATURE GRANULOCYTES 0.8 % (0-5); LYMPHOCYTES 3.9 % (15-50); MCH 35.4 pg (26.0-34.0); MCHC 31.8 g/dL (31.0-37.0); MCV 111.2 fL (80.0-100.0); MEAN PLATELET VOLUME 10.4 fL (7.4-10.4); MONOCYTES 8.9 % (2-11); NEUTROPHILS 85.3 % (40-80); PLATELET COUNT 186 10x3/uL (130-400); RDW 20.9 % (11.5-14.5); WBC 8.7 10x3/uL (4.8-10.8)
[2019-03-11 06:53] LABS: ANION GAP 23.9 mmol/L (8-16); CALCIUM 9.1 mg/dL (8.5-10.1); CARBON DIOXIDE 19.8 mmol/L (21.0-32.0)
[2019-03-11 06:57] LABS: POTASSIUM - SERUM 6.7 mmol/L (3.5-5.1)
[2019-03-11 07:47] VITALS: BP 114/75
--- NOTE | 2019-03-11 11:03 | NUR ---
PATIENT IS DECLINING MEDICATIONS AND THERAPY. SPOKE WITH SPOUSE THIS AM AND A REFERRAL TO [facility] HAS BEEN MADE. WILL CONTINUE TO FOLLOW WITH PATIENT.
--- NOTE | 2019-03-11 14:50 | NUR ---
LAYING IN BED RESTING WITH EYES CLOSED. NO S/S DISTRESS. CALL LIGHT IN REACH
--- NOTE | 2019-03-11 15:14 | NUR ---
LAYING IN BED, OXYGEN IN PLACE 2LNC. IN ROOM. SKIN IS PALE AND DRY. BREATHING IS LABORED AT TIMES BUT SATS REMAIN MID TO HIGH 90'S. HE IS NOT EATING TODAY, NOT DRINKING BUT FEW SIPS. STILL TRYING TO FINISH [place] DRINK FROM THIS MORNING. BLE HAVE 4+ EDEMA. HE IS MAX ASST WITH ALL TASKS. INCONT OF B/B. NO SKIN BREAKDOWN NOTED. PT IS SCHEDULED TO DC TO HOSPICE TOMORROW.
--- NOTE | 2019-03-11 19:25 | NUR ---
PT RESTING IN BED WITH EYES OPEN. ALERT TO SELF. REFUSING TO SPEAK TO MOST QUESTIONS. PT DID STATE HE NEEDED TO GET UP TO THE BATHROOM. PT ASSISTED TO TOILET WITH MOD ASSIST OF 1 NURSE. LARGE VERY PASTY BM NOTED. PT REFUSED TO ATTEMPT TO STAND TO GET OFF TOILET. TRANSFERRED WITH TOTAL ASSIST. TOILETING DONE WITH TOTAL ASSIST OF ANOTHER NURSE. PT ASSISTED BACK TO BED. O2 ON @ 2LPM PER NC. BED LINENS WERE ALL CHANGED. FOOT OF BED ELEVATED. SR'S ARE UP X 2 IN BED. CALL LIGHT AND BEDSIDE TABLE ARE WITHIN EASY REACH.
[2019-03-11 20:47] VITALS: BP 106/78
--- NOTE | 2019-03-11 21:23 | NUR ---
PT RESTING IN BED WITH EYES OPEN. NO ACUTE DISTRESS NOTED.
--- NOTE | 2019-03-12 01:52 | NUR ---
QUIET HOURS. PT LYING IN BED SUPINE HOB 15 DEGREES EYES CLOSED RESTING QUIETLY. NO SIGNS OF DISTRESS NOTED. CONTINUES ON 2L VIA NC. CL IN REACH, BED ALARM ON
--- NOTE | 2019-03-12 05:33 | NUR ---
PT LYING IN BED SUPINE EYES CLOSED RESTING QUIETLY. RR EVEN AND UNLABORED. CONTINUES ON 2L VIA NC. CL IN REACH
[2019-03-12 07:30] LABS: ANION GAP 20.6 mmol/L (8-16); CALCIUM 9.2 mg/dL (8.5-10.1); CARBON DIOXIDE 20.2 mmol/L (21.0-32.0); CREATININE - SERUM 2.3 mg/dL (0.6-1.3); MAGNESIUM - SERUM 1.5 mg/dL (1.8-2.4); PHOSPHOROUS 5.8 mg/dL (2.5-4.9); POTASSIUM - SERUM 5.8 mmol/L (3.5-5.1)
--- NOTE | 2019-03-12 08:00 | NUR ---
SHIFT ASSMT COMPLETED.WILL DC TO [facility] TO HOSPICE TODAY.
[2019-03-12 08:22] VITALS: BP 102/77
--- NOTE | 2019-03-12 11:24 | NUR ---
PATIENT HAS BEEN ACCEPTED TO [facility] AND WILL DISCHARGE TO [facility] TODAY VIA AMBULANCE. SPOUSE AT BEDSIDE.
--- NOTE | 2019-03-12 12:00 | NUR ---
VISITING .REFUSES TO EAT.ONLY TAKES MEDICINE (LASIX);CHOOSES AND DECIDES WHAT TO TAKE.DENIES NEEDS.
--- NOTE | 2019-03-12 12:10 | NUR ---
Nutrition Follow-up: Chart reviewed. Noted renal consult. Diet: Diabetic + Glucerna with meals PO intake: 0% yesterday, <5% average x last 2 days Meds noted: lasix, SSI, Juanuvia, Megace (started 03/07/19) Labs noted: elevated K, BUN, Cr, PO4, and Glucose; low GFR. Skin assessment reviewed. +BM. Last wt: 180# (02/26/19), no new wt. Continue Diabetic diet and Megace for now. If PO intake increases and renal labs remain high consider transition to Renal ADA diet. If Nutrition Support needed recommend goal TF of: Nepro @ 50mL/hr. Encourage PO intake. RD Following.
--- NOTE | 2019-03-12 17:20 | NUR ---
DISCHARGED TO [facility] PER AMBULANCE.
--- NOTE | 2019-03-13 16:02 | NUR ---
FAXED DISCHARGE CLINICALS TO PATIENT [facility], ROBERTA ALLEN.#[id number] FAXED TO WITH CONFORMATION RECIEVED
== END 2019-03-12 17:25 | DRG 73 ==
LOC: D.REHAB 15:15
PROVIDERS: ADMIT Emergency Medicine; ATTEND Emergency Medicine
DX: G61.81 Chronic inflammatory demyelinating polyneuritis (principal); J96.01 Acute respiratory failure with hypoxia; I50.23 Acute on chronic systolic (congestive) heart failure; J18.9 Pneumonia, unspecified organism; I25.110 Atherosclerotic heart disease of native coronary artery with unstable angina pectoris; I13.0 Hypertensive heart and chronic kidney disease with heart failure and stage 1 through stage 4 chronic kidney disease, or unspecified chronic kidney disease; E87.1 Hypo-osmolality and hyponatremia; N17.9 Acute kidney failure, unspecified; R56.9 Unspecified convulsions; E11.9 Type 2 diabetes mellitus without complications; I10 Essential (primary) hypertension; M54.5 Low back pain; I34.0 Nonrheumatic mitral (valve) insufficiency; D70.9 Neutropenia, unspecified; R53.81 Other malaise; N18.9 Chronic kidney disease, unspecified; G47.00 Insomnia, unspecified; E87.5 Hyperkalemia; D63.1 Anemia in chronic kidney disease; G40.909 Epilepsy, unspecified, not intractable, without status epilepticus; E78.5 Hyperlipidemia, unspecified; K21.9 Gastro-esophageal reflux disease without esophagitis; Z95.0 Presence of cardiac pacemaker; J30.9 Allergic rhinitis, unspecified; R04.0 Epistaxis; R14.0 Abdominal distension (gaseous); R63.0 Anorexia; E03.9 Hypothyroidism, unspecified